=== PATIENT | male | born 1970 | race Hispanic/Latino ===

== ENCOUNTER 2021-07-26 08:58 | Emergency (ER) | payer BC ==
[2021-07-26 09:40] LABS: Absolute Lymphocytes (CBC) 2.2 K/uL (0.7-4.9); Basophils % 0.8 % (0-1.3); Hematocrit 45.3 % (39.6-49.0); MPV 7.9 fL (7.6-11.3); RBC Red Blood Cell Count 5.14 M/uL (4.33-5.43)
[2021-07-26 10:14] LABS: Albumin 3.8 g/dL (3.4-5.0); Bilirubin Direct 0.1 mg/dL (0-0.2); Bilirubin Total 0.3 mg/dL (0.2-1.0); Potassium 3.8 mmol/L (3.5-5.1); Protein, Total 7.4 g/dL (6.4-8.2)
--- NOTE | 2021-07-26 14:42 | ER ---
Nurse's Notes [facility] Name: Myke Olivarez Sr Age: 50 yrs Sex: Male : 1970 Arrival Date: 07/26/2021 Time: 09:02 Bed 8 Private MD: Chucho Torres B Diagnosis: Calculus of ureter-right 7 MM Presentation: 07/26 09:10 Chief complaint: Patient states: he has right sided abdominal pain that radiates to the ap3 back. Patient states the pain is 10/10 on a scale of 0-10. patient states he has never had this pain before. Coronavirus screen: At this time, the client does not indicate any symptoms associated with coronavirus-19. Ebola Screen: No symptoms or risks identified at this time. Initial Sepsis Screen: Does the patient meet any 2 criteria? RR > 20 per min. No. Patient's initial sepsis screen is negative. Does the patient have a suspected source of infection? No. Patient's initial sepsis screen is negative. Risk Assessment: Do you want to hurt yourself or someone else? Patient reports no desire to harm self or others. Onset of symptoms was July 26, 2021. 09:10 Method Of Arrival: Ambulatory ap3 09:10 Acuity: SANTINO 3 ap3 Triage Assessment: 09:14 General: Appears uncomfortable, Behavior is anxious, restless. Pain: Complains of pain ap3 in right upper quadrant Pain radiates to low back area Pain currently is 10 out of 10 on a pain scale. Pain began suddenly, Is continuous, Alleviated by repositioning, Noted to be restless. Neuro: Level of Consciousness is awake, alert, obeys commands, Oriented to person, place, time, situation, Appropriate for age Moves all extremities. Gait is steady, Speech is normal. Cardiovascular: Respiratory: Airway is patent Respiratory effort is even, unlabored, Respiratory pattern is regular, symmetrical. : Reports pain flank(s), in lower back. Musculoskeletal: Range of motion: intact in all extremities. Historical: - Allergies: 09:13 No Known Allergies; ap3 - Home Meds: 09:13 losartan oral [Active]; ap3 - PMHx: 09:13 Hypertensive disorder; Diabetes mellitus; ap3 - Immunization history:: Client reports receiving the Ricky \T\ Ricky single-dose vaccine. Date received January 2021. - Social history:: Smoking status: Patient denies any tobacco usage or history of. - Family history:: not pertinent. Screenin:15 Abuse screen: Denies threats or abuse. Nutritional screening: No deficits noted. ap3 Tuberculosis screening: No symptoms or risk factors identified. Fall Risk None identified. Assessment: 09:16 Reassessment: patient provided with urinal and education on proper urine collection. ap3 Patient verbalized understanding. Vital Signs: 09:10 BP 150 / 97; Pulse 64; Resp 21; Temp 97.7(O); Pulse Ox 97% on R/A; Weight 131.54 kg; ap3 Height 5 ft. 7 in. (170.18 cm); Pain 10/10; 09:30 BP 150 / 97; Pulse 87; Resp 18; Pulse Ox 100% on R/A; kj1 10:53 BP 123 / 78; Pulse 67; Pulse Ox 100% on R/A; Pain 0/10; ap3 11:47 BP 126 / 79; Pulse 59; Pulse Ox 97% on R/A; ap3 12:59 BP 125 / 83; Pulse 57; Pulse Ox 99% on R/A; ap3 13:42 BP 129 / 88; Pulse 72; Pulse Ox 96% on R/A; ap3 09:10 Body Mass Index 45.42 (131.54 kg, 170.18 cm) ap3 ED Course: 09:02 Patient arrived in ED. mr 09:02 Chucho Torres MD is Private Physician. mr 09:04 Judith Nieto, SASHA is Primary Nurse. ap3 09:06 Lilliam Hwang MD is Attending Physician. ma2 09:13 Triage completed. ap3 09:15 Arm band placed on right wrist. ap3 09:16 Patient has correct armband on for positive identification. Pulse ox on. NIBP on. Door ap3 closed. Noise minimized. 09:16 Inserted saline lock: 22 gauge in right antecubital area, using aseptic technique. ll1 Blood collected. 09:[address] via wheelchair. ap3 09:[address] In Process Unspecified. EDMS 14:41 Norman Amaral MD is Referral Physician. ma2 14:57 No provider procedures requiring assistance completed. IV discontinued, intact, ap3 bleeding controlled, No redness/swelling at site. Pressure dressing applied. Administered Medications: 09:38 Drug: Zofran (Ondansetron) 4 mg Route: IVP; Site: right antecubital; ap3 10:53 Follow up: Response: No adverse reaction ap3 09:38 Drug: NS 0.9% 1000 ml Route: IV; Rate: 1 bolus; Site: right antecubital; ap3 14:58 Follow up: IV Status: Completed infusion; IV Intake: 1000ml ap3 09:39 Drug: morphine 4 mg {Note: RASS 0, Pt states pain is 10/10.} Route: IVP; Site: right ap3 antecubital; 10:53 Follow up: Response: No adverse reaction ap3 12:11 Drug: Flomax (tamsulosin) 0.4 mg Route: PO; ap3 14:58 Follow up: Response: No adverse reaction ap3 Intake: 14:58 IV: 1000ml; Total: 1000ml. ap3 Outcome: 14:41 Discharge ordered by . ma2 14:58 Discharged to home ambulatory. ap3 14:58 Condition: good 14:58 Discharge instructions given to patient, Instructed on discharge instructions, follow up and referral plans. medication usage, Demonstrated understanding of instructions, follow-up care, medications, Prescriptions given X 3. 14:58 Patient left the ED. ap3 Signatures: Dispatcher [employer] SAROJ MendozaSarah Mohammad, MD MD ma2 Judith Nieto RN RN ap3 Alisa Butler Lynsay, RN RN ll1
--- NOTE | 2021-07-26 14:42 | EDPHYS ---
Physician Documentation [facility] Name: Myke Olivarez Sr Age: 50 yrs Sex: Male : 1970 Arrival Date: 07/26/2021 Time: 09:02 Bed 8 Private MD: Chucho Torres B ED Physician Lilliam Hwang HPI: 07/26 11:32 This 50 yrs old Male presents to ER via Ambulatory with complaints of Flank ma2 Pain, Back Pain. 11:32 The patient complains of pain in the left mid back and right mid back. Onset: The ma2 symptoms/episode began/occurred suddenly, 1 day(s) ago. Associated signs and symptoms: Pertinent negatives: dysuria, headache, hematuria, nausea. Severity of pain: At its worst the pain was moderate in the emergency department the pain is unchanged. The patient has not experienced similar symptoms in the past. Historical: - Allergies: 09:13 No Known Allergies; ap3 - Home Meds: 09:13 losartan oral [Active]; ap3 - PMHx: 09:13 Hypertensive disorder; Diabetes mellitus; ap3 - Immunization history:: Client reports receiving the Ricky \T\ Ricky single-dose vaccine. Date received January 2021. - Social history:: Smoking status: Patient denies any tobacco usage or history of. - Family history:: not pertinent. ROS: 11:32 Constitutional: Negative for fever, chills, and weight loss. ma2 11:32 All other systems are negative. Exam: 11:32 Constitutional: This is a well developed, well nourished patient who is awake, alert, ma2 and in no acute distress. ENT: Nares patent. No nasal discharge, no septal abnormalities noted. Tympanic membranes are normal and external auditory canals are clear. Oropharynx with no redness, swelling, or masses, exudates, or evidence of obstruction, uvula midline. Mucous membranes moist. Neck: Trachea midline, no thyromegaly or masses palpated, and no cervical lymphadenopathy. Supple, full range of motion without nuchal rigidity, or vertebral point tenderness. No Meningismus. Chest/axilla: Normal chest wall appearance and motion. Nontender with no deformity. No lesions are appreciated. Cardiovascular: Regular rate and rhythm with a normal S1 and S2. No gallops, murmurs, or rubs. Normal PMI, no JVD. No pulse deficits. Respiratory: Lungs have equal breath sounds bilaterally, clear to auscultation and percussion. No rales, rhonchi or wheezes noted. No increased work of breathing, no retractions or nasal flaring. Abdomen/GI: Soft, non-tender, with normal bowel sounds. No distension or tympany. No guarding or rebound. No evidence of tenderness throughout. Skin: Warm, dry with normal turgor. Normal color with no rashes, no lesions, and no evidence of cellulitis. MS/ Extremity: Pulses equal, no cyanosis. Neurovascular intact. Full, normal range of motion. Neuro: Awake and alert, GCS 15, oriented to person, place, time, and situation. Cranial nerves II-XII grossly intact. Motor strength 5/5 in all extremities. Sensory grossly intact. Cerebellar exam normal. Normal gait. Vital Signs: 09:10 BP 150 / 97; Pulse 64; Resp 21; Temp 97.7(O); Pulse Ox 97% on R/A; Weight 131.54 kg; ap3 Height 5 ft. 7 in. (170.18 cm); Pain 10/10; 09:30 BP 150 / 97; Pulse 87; Resp 18; Pulse Ox 100% on R/A; kj1 10:53 BP 123 / 78; Pulse 67; Pulse Ox 100% on R/A; Pain 0/10; ap3 11:47 BP 126 / 79; Pulse 59; Pulse Ox 97% on R/A; ap3 12:59 BP 125 / 83; Pulse 57; Pulse Ox 99% on R/A; ap3 13:42 BP 129 / 88; Pulse 72; Pulse Ox 96% on R/A; ap3 09:10 Body Mass Index 45.42 (131.54 kg, 170.18 cm) ap3 MDM: 09:06 Patient medically screened. ma2 11:32 Differential diagnosis: nephrolithiasis, pyelonephritis, UTI, pancreatitis. ma2 14:40 Data reviewed: vital signs, nurses notes, EMS record. Counseling: I had a detailed ma2 discussion with the patient and/or guardian regarding: the historical points, exam findings, and any diagnostic results supporting the discharge/admit diagnosis, the presence of at least one elevated blood pressure reading (>120/80) during this emergency department visit, the need for outpatient follow up. Response to treatment: the patient's symptoms have resolved after treatment. ED course: verbal report taken from dr. craven patient has right sided ureter stone 7mm upg w mild hydro . 07/26 09:29 Order name: Basic Metabolic Panel; Complete Time: 10:47 ma2 07/26 09:29 Order name: CBC with Diff; Complete Time: 10:01 ma2 07/26 09:29 Order name: Stone Protocol CT ma2 07/26 09:29 Order name: Hepatic Function; Complete Time: 10:47 ma2 07/26 09:29 Order name: Lipase; Complete Time: 10:47 ma2 07/26 09:29 Order name: IV Saline Lock; Complete Time: 09:30 ma2 07/26 09:29 Order name: Labs collected and sent; Complete Time: 09:39 ma2 07/26 09:29 Order name: Urine Dipstick-Ancillary (obtain specimen); Complete Time: 11:23 ma2 Administered Medications: 09:38 Drug: Zofran (Ondansetron) 4 mg Route: IVP; Site: right antecubital; ap3 10:53 Follow up: Response: No adverse reaction ap3 09:38 Drug: NS 0.9% 1000 ml Route: IV; Rate: 1 bolus; Site: right antecubital; ap3 14:58 Follow up: IV Status: Completed infusion; IV Intake: 1000ml ap3 09:39 Drug: morphine 4 mg {Note: RASS 0, Pt states pain is 10/10.} Route: IVP; Site: right ap3 antecubital; 10:53 Follow up: Response: No adverse reaction ap3 12:11 Drug: Flomax (tamsulosin) 0.4 mg Route: PO; ap3 14:58 Follow up: Response: No adverse reaction ap3 Disposition Summary: 07/26/21 14:41 Discharge Ordered Location: Home ma2 Condition: Stable ma2 Diagnosis - Calculus of ureter - right 7 MM ma2 Followup: ma2 - With: Norman Amaral MD - When: Tomorrow - Reason: Continuance of care Discharge Instructions: - Discharge Summary Sheet ma2 - Kidney Stones ma2 - Kidney Stones, [id number] ma2 - Lithotripsy, Care After ma2 Forms: - Medication Reconciliation Form ma2 - Thank You Letter ma2 - Antibiotic Education ma2 - Prescription Opioid Use ma2 Prescriptions: - Flomax 0.4 mg Oral capsule - take 1 capsule by ORAL route once daily 1/2 hour following the same meal each ma2 day; 30 capsule; Refills: 0, Product Selection Permitted - Zofran 4 mg Oral Tablet - take 1 tablet by ORAL route every 12 hours As needed; 20 tablet; Refills: 0, ma2 Product Selection Permitted - Diclofenac Sodium 75 mg Oral Tablet Sustained Release - take 1 tablet by ORAL route 2 times per day; 30 tablet; Refills: 0, Product ma2 Selection Permitted Signatures: Dispatcher [employer] EDLilliam Thompson MD MD ma2 Judith Nieto RN RN ap3
--- NOTE | 2021-07-26 14:47 | RAD REPORT ---
EXAM DESCRIPTION: CT - Stone Protocol - 07/26/2021 12:55 pm CLINICAL HISTORY: flank pain bilat COMPARISON: No comparisons TECHNIQUE: Axial 3 mm thick images were obtained without oral or IV contrast. The ghisb-nu-ruei span s the entirety of the system including uppermost abdomen and lung bases. All CT scans are performed using dose optimization technique as appropriate and may include automated exposure control or mA/KV adjustment according to patient size. FINDINGS: Mild hydronephrosis of the right side pelvis and calices noted secondary to a 7 millimeter right UPJ stone. No other obstructing calculi. Distal right ureter is normal diameter. Punctate 2 mm size calculi seen in the upper pole of each kidney. Anterior mid left kidney shows a 3 centimeter ro unded low-density mass almost certainly an incidental cyst. No suspicious renal masses. Isodense mass es and pyelonephritis are not excluded on a stone protocol CT scan. No significant adrenal finding. C ontracted urinary bladder shows no suspicious finding. No bladder calculi seen. Prostate gland and se luis manuel vesicles within range of normal. Imaged portions of the liver, spleen and pancreas show no suspicious findings on non-contrast imaging . No gallbladder or biliary tree abnormality identified. No suspicious bowel findings. No suspicion for appendicitis. No hernia, mass or bulky lymphadenopathy noted. A few small nonspecific lymph nodes are seen. No free air, free fluid or inflammatory stranding. No significant bony abnormality. Due to technical malfunction the final report could not be dictated at the time of the study. Finding s were telephoned to the emergency department. IMPRESSION: Mild hydronephrosis secondary to a 7 mm right UPJ calculus. No other acute findings. Isodense masses and pyelonephritis are not excluded on stone protocol technique.
[2021-07-26 15:04] VITALS: TEMP 97.7
[2021-07-26 15:11] VITALS: BP 129/88; O2SAT 96
[2021-07-29 09:48] LABS: Urine Blood 3+ (Negative); Urine Glucose Negative (Negative); Urine Protein Negative (Negative); Urine Specific Gravity 1.015 (1.005-1.030); Urine pH 5.5 (5.0-7.0)
== END 2021-07-26 14:58 | disposition home or self-care (01) ==
LOC: ER 08:58
DX: N20.1 Calculus of ureter (principal); I10 Essential (primary) hypertension; E11.9 Type 2 diabetes mellitus without complications
CPT/HCPCS: 36415; 74176; 76377; 80048; 80076; 81003; 83690; 85025; 96361; 96374; 96375; 99284

== ENCOUNTER 2022-03-13 08:18 | Emergency (ER) | payer BC ==
--- OUTSIDE RECORDS SUMMARY | 2022-03-13 08:32 | XMS REPORT | Continuity of Care Document ---
:1970 Author Organization [facility] t Address [address] [place] [address] Dr. Tillman [address] [place] [id number] Care Team Providers Name Role Phone JAY LEE Attending Clinician Unavailable Problems This patient has no known problems. Allergies, Adverse Reactions, Alerts Allergy Allergy Status Severity Reaction(s) Onset Inactive Treating Comm ents Source Name Type Date Date Clinician NO KNOWN Drug Active [facility] ALLERGIE Class [facility] Medications This patient has no known medications. Procedures This patient has no known procedures. Encounters Start End Encounter Admission Attending Care Care Encounter Source Date/Time Date/Time Type Type Clinicians Facility Department ID 2020-07-05 2020-07-05 Outpatient R JESUS ARJYOTI [facility] [id number] [employer] 09:50:00 09:50:00 [facility] Results This patient has no known results.
[2022-03-13] MEDS ORDERED: MORPHINE 4 MG/ML SYR ONE (08:46)
[2022-03-13] MEDS ORDERED: NA CHLORIDE 0.9% 1,000 ML ONE (08:46)
[2022-03-13] MEDS ORDERED: ONDANSETRON 4 MG/2 ML VIAL ONE ×2 (08:46→09:52)
[2022-03-13 09:00] LABS: Absolute Lymphocytes (CBC) 1.9 K/uL (0.7-4.9); Hematocrit 48.8 % (39.6-49.0); Lymphocytes % 21.2 % (15.3-44.8); MPV 7.5 fL (7.6-11.3); RBC Red Blood Cell Count 5.55 M/uL (4.33-5.43)
--- NOTE | 2022-03-13 09:02 | RAD REPORT ---
EXAM DESCRIPTION: CT - Stone Protocol - 03/13/2022 8:55 am CLINICAL HISTORY: Flank pain. Flank pain, kidney stone suspected COMPARISON: Stone Protocol dated 07/26/2021 TECHNIQUE: Axial images were obtained without oral or IV contrast. Lack of contrast limits solid org an and vascular assessment. The [id number] spans the entirety of the system partially obscuring uppermost abdomen and lung bases. Coronal reformatted images were obtained and reviewed. All CT scans are performed using dose optimization technique as appropriate and may include automated exposure control or mA/KV adjustment according to patient size. FINDINGS: The lower lung prescott are clear. Imaged portions of the liver and spleen show no suspicious findings on non-contrast imaging. The panc reas and adrenal glands are normal. No pathologic lymphadenopathy in the abdomen or pelvis. 6 mm stone is present proximal right ureter mild right hydronephrosis. Additional punctate bilateral nephrolithiasis seen. 3.3 cm cyst is seen the anterior aspect left renal cortex. No bowel obstruction, free air, free fluid or abscess. Normal appendix noted. No significant bony abnormality. IMPRESSION: 6 mm stone proximal right ureter with mild right hydronephrosis. Additional punctate bilateral nephrolithiasis.
[2022-03-13 09:24] LABS: Bilirubin Total 0.5 mg/dL (0.2-1.0); Potassium 3.5 mmol/L (3.5-5.1); Protein, Total 8.1 g/dL (6.4-8.2)
[2022-03-13] MEDS ORDERED: KETOROLAC 30 MG/ML INJ ONE (09:24)
[2022-03-13] MEDS ORDERED: CEFTRIAXONE 1000 MG/VIAL ONE (09:24)
[2022-03-13] MEDS ORDERED: NA CHLORIDE 0.9% 100 ML ONE (09:24)
[2022-03-13] MEDS ORDERED: MAGNESIUM SULFATE 1 gm IVPB 1 GM/100 ML BAG IV ONE (09:24)
[2022-03-13] MEDS ORDERED: TAMSULOSIN 0.4 MG SR CAP ONE (09:24)
[2022-03-13] MEDS ORDERED: HYDROMORPHONE HCL 1 MG/ML INJ ONE ×2 (09:52→11:52)
--- NOTE | 2022-03-13 11:56 | ER ---
Nurse's Notes [facility] Name: Myke Olivarez Age: 51 yrs Sex: Male : 1970 Arrival Date: 03/13/2022 Time: 08:19 Bed 2 Private MD: Chucho Torres B Diagnosis: Calculus of ureter-right Presentation: 03/13 08:24 Chief complaint: Patient states: right flank pain since 7 am, hx of kidney stones, also iw vomiting. Coronavirus screen: At this time, the client does not indicate any symptoms associated with coronavirus-19. Ebola Screen: Patient negative for fever greater than or equal to 101.5 degrees Fahrenheit, and additional compatible Ebola Virus Disease symptoms Patient denies exposure to infectious person. Patient denies travel to an Ebola-affected area in the 21 days before illness onset. No symptoms or risks identified at this time. Initial Sepsis Screen: Does the patient meet any 2 criteria? No. Patient's initial sepsis screen is negative. Does the patient have a suspected source of infection? No. Patient's initial sepsis screen is negative. Risk Assessment: Do you want to hurt yourself or someone else? Patient reports no desire to harm self or others. Onset of symptoms was March 13, 2022. 08:24 Method Of Arrival: Ambulatory iw 08:24 Acuity: SANTINO 3 iw Historical: - Allergies: 08:24 No Known Allergies; iw - PMHx: 08:24 Hypertensive disorder; diabetes mellitus; iw - PSHx: 08:24 None; iw Screenin:34 Abuse screen: Denies threats or abuse. Denies injuries from another. Nutritional iw screening: No deficits noted. Tuberculosis screening: No symptoms or risk factors identified. Fall Risk IV access (20 points). Assessment: 08:30 General: Appears uncomfortable, Behavior is restless. Pain: Complains of pain in right aa5 flank Pain currently is 10 out of 10 on a pain scale. Quality of pain is described as sharp, shooting, Is continuous. Neuro: Level of Consciousness is awake, alert, obeys commands, Oriented to person, place, time, situation. Cardiovascular: Heart tones S1 S2 present Rhythm is regular. Respiratory: Airway is patent Respiratory effort is even, unlabored, Respiratory pattern is regular, symmetrical. GI: Abdomen is obese, Bowel sounds present X 4 quads. Abd is soft and non tender X 4 quads. Reports nausea, vomiting. : No signs and/or symptoms were reported regarding the genitourinary system. EENT: No signs and/or symptoms were reported regarding the EENT system. Derm: Skin is pink, warm \T\ dry. Musculoskeletal: Range of motion: intact in all extremities. 09:42 Reassessment: Patient is alert, oriented x 3, equal unlabored respirations, skin aa5 warm/dry/pink. Patient states symptoms have not improved. PA notified (see MAR for orders). 09:42 General: Appears uncomfortable, Behavior is restless. aa5 09:42 Pain: Pain currently is 8 out of 10 on a pain scale. aa5 11:04 Reassessment: Patient is alert, oriented x 3, equal unlabored respirations, skin aa5 warm/dry/pink. Patient states feeling better. Patient states symptoms have improved. Pt declined water for PO challenge, pt given Diet Sprite for PO challenge. . General: Appears comfortable. 11:53 Reassessment: Patient is alert, oriented x 3, equal unlabored respirations, skin aa5 warm/dry/pink. General: Appears comfortable. 11:53 Pain: Pain currently is 6 out of 10 on a pain scale. aa5 11:53 Reassessment: No vomiting noted or reported after PO challenge. . aa5 12:30 Reassessment: Patient is alert, oriented x 3, equal unlabored respirations, skin aa5 warm/dry/pink. Patient states feeling better. Awaiting urine micro results before d/c home. . Vital Signs: 08:25 BP 145 / 95; Pulse 70; Resp 18; Temp 97.0; Pulse Ox 99% on R/A; Weight 122.47 kg; iw Height 5 ft. 7 in. (170.18 cm); Pain 10/10; 09:53 BP 119 / 61; Pulse 61; Resp 20 S; Pulse Ox 99% on R/A; aa5 11:50 BP 120 / 79; Pulse 59; Resp 16 S; Pulse Ox 99% on R/A; aa5 08:25 Body Mass Index 42.29 (122.47 kg, 170.18 cm) iw ED Course: 08:19 Patient arrived in ED. as 08:19 Chucho Torres MD is Private Physician. as 08:20 Marco Antonio Radford PA is PHCP. cp 08:20 Maninder Hinojosa MD is Attending Physician. cp 08:24 Triage completed. iw 08:25 Arm band placed on. iw 08:30 Patient has correct armband on for positive identification. Bed in low position. Call aa5 light in reach. Side rails up X 1. 08:34 Initial lab(s) drawn, by me. Inserted saline lock: 20 gauge in right antecubital area, iw using aseptic technique. Blood collected. 08:57 CT Stone Protocol In Process Unspecified. EDMS 09:12 Alicja Lazo, SASHA is Primary Nurse. aa5 11:55 Norman Amaral MD is Referral Physician. cp 13:47 No provider procedures requiring assistance completed. IV discontinued, intact, iw bleeding controlled, No redness/swelling at site. Pressure dressing applied. Administered Medications: 08:48 Drug: Zofran (Ondansetron) 4 mg Route: IVP; Site: right antecubital; iw 08:55 Follow up: Response: No adverse reaction aa5 08:48 Drug: morphine 4 mg Route: IVP; Infused Over: 4 mins; Site: right antecubital; iw 09:12 Follow up: Response: No adverse reaction; Pain is unchanged, physician notified aa5 08:48 Drug: NS 0.9% 1000 ml Route: IV; Rate: 500 ml/hr; Site: right antecubital; iw 09:40 Follow up: IV Status: Completed infusion; IV Intake: 500ml aa5 09:12 Drug: Flomax (tamsulosin) 0.4 mg Route: PO; aa5 10:11 Follow up: Response: No adverse reaction aa5 09:12 Drug: Rocephin - (cefTRIAXone) 1 grams Route: IVPB; Infused Over: 30 mins; Site: right aa5 antecubital; 09:42 Follow up: Response: No adverse reaction; IV Status: Completed infusion aa5 09:12 Drug: Ketorolac 15 mg Route: IVP; Site: right antecubital; aa5 09:42 Follow up: Response: No adverse reaction; Pain is unchanged, physician notified aa5 09:42 Drug: Magnesium Sulfate 1 grams Route: IVPB; Infused Over: 1 hrs; Site: right aa5 antecubital; 10:42 Follow up: IV Status: Completed infusion aa5 09:50 Drug: Zofran (Ondansetron) 4 mg Route: IVP; Site: right antecubital; aa5 10:13 Follow up: Response: No adverse reaction aa5 09:52 Drug: Dilaudid (HYDROmorphone) 1 mg Route: IVP; Site: right antecubital; aa5 10:13 Follow up: Response: No adverse reaction aa5 11:53 Drug: Dilaudid (HYDROmorphone) 1 mg Route: IVP; Site: right antecubital; aa5 12:30 Follow up: Response: No adverse reaction; Pain is decreased aa5 Intake: 09:40 IV: 500ml; Total: 500ml. aa5 Outcome: 11:56 Discharge ordered by MD. cp 13:47 Discharged to home ambulatory, with family. iw 13:47 Condition: good 13:47 Discharge instructions given to patient, Instructed on discharge instructions, follow up and referral plans. medication usage, Demonstrated understanding of instructions, follow-up care, medications, Prescriptions given X 4. 13:48 Patient left the ED. iw Signatures: Dispatcher [employer] Rbeekah Sarmiento Irene, RN SASHA iw Alicja Laoz RN RN aa5 Marco Antonio Radford PA PA cp
--- NOTE | 2022-03-13 11:56 | EDPHYS ---
Physician Documentation [facility] – [place], [place] Name: Myke Olivarez Age: 51 yrs Sex: Male : 1970 Arrival Date: 03/13/2022 Time: 08:19 Bed 2 Private MD: Chucho Torres B ED Physician Maninder Hinojosa HPI: 03/13 08:45 This 51 yrs old Male presents to ER via Ambulatory with complaints of Possible cp Kidney Stone. Historical: - Allergies: 08:24 No Known Allergies; iw - PMHx: 08:24 Hypertensive disorder; diabetes mellitus; iw - PSHx: 08:24 None; iw ROS: 08:50 Constitutional: Negative for body aches, chills, fever, poor PO intake. cp 08:50 Eyes: Negative for injury, pain, redness, and discharge. cp 08:50 Cardiovascular: Negative for chest pain, palpitations. 08:50 Respiratory: Negative for cough, shortness of breath, wheezing. 08:50 Abdomen/GI: Positive for nausea, Negative for diarrhea, constipation, active vomiting. 08:50 Back: Positive for flank pain, on the right, Negative for injury or acute deformity, decreased range of motion. 08:50 : Negative for urinary symptoms, testicular pain 08:50 Neuro: Negative for altered mental status, headache, numbness, weakness. 08:50 All other systems are negative. Exam: 08:55 Constitutional: The patient appears in no acute distress, alert, awake, cp non-diaphoretic, non-toxic, well developed, well nourished, uncomfortable. 08:55 Head/Face: Normocephalic, atraumatic. cp 08:55 Eyes: Periorbital structures: appear normal, Conjunctiva: normal, no exudate, no injection, Sclera: no appreciated abnormality, Lids and lashes: appear normal, bilaterally. 08:55 ENT: External ear(s): Nose: is normal, Mouth: Lips: moist, Oral mucosa: pink and intact, moist, Posterior pharynx: Airway: no evidence of obstruction, patent. 08:55 Chest/axilla: Inspection: normal. 08:55 Cardiovascular: Rate: normal, Rhythm: regular. 08:55 Respiratory: the patient does not display signs of respiratory distress, Respirations: normal, no use of accessory muscles, no retractions, labored breathing, is not present, Breath sounds: are clear throughout, no decreased breath sounds, no stridor, no wheezing. 08:55 Abdomen/GI: Inspection: abdomen appears normal, Bowel sounds: active, all quadrants, Palpation: soft, in all quadrants, moderate abdominal tenderness, in the right flank, rebound tenderness, is not appreciated, involuntary guarding, is not appreciated. 08:55 Skin: cellulitis, is not appreciated, no rash present. 08:55 Neuro: Orientation: to person, place \T\ time. Mentation: is normal, Motor: moves all fours, strength is normal, Sensation: is normal, Gait: is steady, at a normal pace, without difficulty. Vital Signs: 08:25 BP 145 / 95; Pulse 70; Resp 18; Temp 97.0; Pulse Ox 99% on R/A; Weight 122.47 kg; iw Height 5 ft. 7 in. (170.18 cm); Pain 10/10; 09:53 BP 119 / 61; Pulse 61; Resp 20 S; Pulse Ox 99% on R/A; aa5 11:50 BP 120 / 79; Pulse 59; Resp 16 S; Pulse Ox 99% on R/A; aa5 08:25 Body Mass Index 42.29 (122.47 kg, 170.18 cm) iw MDM: 08:34 Patient medically screened. cp 11:55 Data reviewed: vital signs, nurses notes, lab test result(s), radiologic studies, CT cp scan. 11:55 Counseling: I had a detailed discussion with the patient and/or guardian regarding: the cp historical points, exam findings, and any diagnostic results supporting the discharge/admit diagnosis, lab results, radiology results, the need for outpatient follow up, a urologist, if pain continues next 2-3 days, to return to the emergency department if symptoms worsen or persist or if there are any questions or concerns that arise at home. 03/13 08:37 Order name: CBC with Diff; Complete Time: 09:08 cp 03/13 09:08 Interpretation: Normal except: RBC 5.55; MPV 7.5. cp 03/13 08:37 Order name: CMP; Complete Time: 11:56 cp 03/13 11:56 Interpretation: Normal except: GLUC 136; GFR 83; AST 14; GLOB 4.1. cp 03/13 08:37 Order name: Lipase; Complete Time: 11:56 cp 03/13 11:59 Interpretation: Reviewed. cp 03/13 08:37 Order name: Urine Microscopic Only; Complete Time: 13:28 cp 03/13 13:28 Interpretation: Normal except: URBC 5-10; UBACT 20-50. cp 03/13 12:31 Order name: Urine Dipstick-Ancillary; Complete Time: 13:28 EDMS 03/13 13:09 Order name: Urine Culture EDMS 03/13 08:38 Order name: CT Stone Protocol; Complete Time: 09:08 cp 03/13 09:08 Interpretation: Report reviewed. cp 03/13 08:37 Order name: IV Saline Lock; Complete Time: 08:48 cp 03/13 08:37 Order name: Labs collected and sent; Complete Time: 08:48 cp 03/13 08:38 Order name: Urine Dipstick-Ancillary (obtain specimen); Complete Time: 12:33 cp 03/13 10:54 Order name: PO challenge; Complete Time: 11:02 cp Administered Medications: 08:48 Drug: Zofran (Ondansetron) 4 mg Route: IVP; Site: right antecubital; iw 08:55 Follow up: Response: No adverse reaction aa5 08:48 Drug: morphine 4 mg Route: IVP; Infused Over: 4 mins; Site: right antecubital; iw 09:12 Follow up: Response: No adverse reaction; Pain is unchanged, physician notified aa5 08:48 Drug: NS 0.9% 1000 ml Route: IV; Rate: 500 ml/hr; Site: right antecubital; iw 09:40 Follow up: IV Status: Completed infusion; IV Intake: 500ml aa5 09:12 Drug: Flomax (tamsulosin) 0.4 mg Route: PO; aa5 10:11 Follow up: Response: No adverse reaction aa5 09:12 Drug: Rocephin - (cefTRIAXone) 1 grams Route: IVPB; Infused Over: 30 mins; Site: right aa5 antecubital; 09:42 Follow up: Response: No adverse reaction; IV Status: Completed infusion aa5 09:12 Drug: Ketorolac 15 mg Route: IVP; Site: right antecubital; aa5 09:42 Follow up: Response: No adverse reaction; Pain is unchanged, physician notified aa5 09:42 Drug: Magnesium Sulfate 1 grams Route: IVPB; Infused Over: 1 hrs; Site: right aa5 antecubital; 10:42 Follow up: IV Status: Completed infusion aa5 09:50 Drug: Zofran (Ondansetron) 4 mg Route: IVP; Site: right antecubital; aa5 10:13 Follow up: Response: No adverse reaction aa5 09:52 Drug: Dilaudid (HYDROmorphone) 1 mg Route: IVP; Site: right antecubital; aa5 10:13 Follow up: Response: No adverse reaction aa5 11:53 Drug: Dilaudid (HYDROmorphone) 1 mg Route: IVP; Site: right antecubital; aa5 12:30 Follow up: Response: No adverse reaction; Pain is decreased aa5 Disposition: 15:03 Co-signature as Attending Physician, Maninder Hinojosa MD. rn Disposition Summary: 03/13/22 11:56 Discharge Ordered Location: Home cp Problem: new cp Symptoms: have improved cp Condition: Stable cp Diagnosis - Calculus of ureter - right cp Followup: cp - With: Norman Amaral MD - When: 2 - 3 days - Reason: pain continues Discharge Instructions: - Discharge Summary Sheet cp - Kidney Stones cp - Renal Colic cp Forms: - Medication Reconciliation Form cp - Thank You Letter cp - Antibiotic Education cp - Prescription Opioid Use cp Prescriptions: - Flomax 0.4 mg Oral capsule - take 1 capsule by ORAL route once daily As needed 1/2 hour following the same cp meal each day; 7 capsule; Refills: 0, Product Selection Permitted - Zofran 4 mg Oral Tablet - take 1 tablet by ORAL route every 12 hours As needed; 20 tablet; Refills: 0, cp Product Selection Permitted - Cipro 500 mg Oral Tablet - take 1 tablet by ORAL route every 12 hours for 7 days; 14 tablet; Refills: 0, cp Product Selection Permitted - Tylenol-Codeine #3 300 mg-30 mg Oral - take 2 tablet by ORAL route every 6-8 hours As needed; 20 tablet; Refills: 0, cp Product Selection Permitted Signatures: Dispatcher [employer] Nano Parmar RN RN Maninder Hinojosa MD MD rn Calderon, Audri, RN RN aa5 Page, Marco Antonio, PA PA cp
[2022-03-13 12:30] LABS: Urine Blood 2+ (Negative); Urine Glucose 2+ (Negative); Urine Protein Trace (Negative); Urine Specific Gravity 1.025 (1.005-1.030); Urine pH 5.5 (5.0-7.0)
[2022-03-13 13:05] LABS: Urine Bacteria 20-50 /HPF (NONE SEEN)
[2022-03-13 13:06] LABS: Urine Mucus 1+ /HPF (NONE SEEN)
[2022-03-13 13:53] VITALS: TEMP 97; O2SAT 99
[2022-03-13 13:57] VITALS: BP 120/79
== END 2022-03-13 13:48 | disposition home or self-care (01) ==
LOC: ER 08:18
DX: N20.1 Calculus of ureter (principal); R11.0 Nausea; E11.9 Type 2 diabetes mellitus without complications; I10 Essential (primary) hypertension
CPT/HCPCS: 96365; 96367; 87088; 85025; 87086; 36415; 83690; 80053; 76377; 74176; 96375; 99284; J3475; J1170 ×2; J7030; J2405 ×2; 81003; 81015

== ENCOUNTER 2022-05-02 08:42 | Observation (INO) | payer BC ==
[2022-04-27 08:42] LABS: Absolute Lymphocytes (CBC) 1.5 K/uL (0.7-4.9); Hematocrit 45.7 % (39.6-49.0); Lymphocytes % 21.3 % (15.3-44.8); MCV 86.8 fL (80-100); MPV 7.2 fL (7.6-11.3); RBC Red Blood Cell Count 5.26 M/uL (4.33-5.43)
[2022-04-27 08:47] LABS: Potassium 3.9 mmol/L (3.5-5.1)
--- NOTE | 2022-04-27 08:47 | EKG ---
Test Date: 2022-04-27 Test Time: 08:07:01 Rn Transport: [facility] MEASUREMENT RESULTS: Intervals: Rate: 69 GA: 212 QRSD: 106 QT: 392 QTc: 420 [place]: P: 52 GA: 212 QRS: 76 T: 63 INTERPRETIVE STATEMENTS: Sinus rhythm with 1st degree AV block Otherwise normal ECG Compared to ECG 06/17/2001 21:15:00 First degree AV block now present Right-axis deviation no longer present Electronically Signed On 04-27-22 08:46:46 CDT by Tayo Murray
[2022-04-27 09:54] LABS: Protime INR 0.91
[2022-05-02] MEDS ORDERED: CEFAZOLIN 2 GM IN 0.9% NACL 2 GM/100 ML BAG ONE (09:02)
[2022-05-02] MEDS ORDERED: NA CHLORIDE 0.9% 1,000 ML ONE ×2 (09:02→10:53)
[2022-05-02] MEDS ORDERED: MIDAZOLAM HCL 2 MG/2 ML INJ ONE (10:24)
[2022-05-02] MEDS ORDERED: LIDOCAINE 1% MPF 5 ML VIAL ONE (10:24)
[2022-05-02] MEDS ORDERED: propofoL 200 MG/20 ML VIAL IV ONE ×2 (10:24→11:14)
[2022-05-02] MEDS ORDERED: FENTANYL CITR 100 MCG/2 ML ONE (10:24)
[2022-05-02] MEDS ORDERED: ACETAMINOPHEN 500 MG TAB ONE (10:32)
[2022-05-02] MEDS ORDERED: dexAMETHasone 10 MG/ML VIAL ONE (11:25)
[2022-05-02] MEDS ORDERED: KETOROLAC 30 MG/ML INJ ONE (11:25)
[2022-05-02] MEDS ORDERED: Phenylephrine HCl 10 MG/ML 1 ML VIAL ONE (11:35)
[2022-05-02] MEDS ORDERED: NS 0.9% VIAL 10 ML ONE (11:35)
[2022-05-02] MEDS ORDERED: ONDANSETRON 4 MG/2 ML VIAL ONE (11:35)
--- NOTE | 2022-05-02 12:13 | RAD REPORT ---
EXAM DESCRIPTION: RAD - Urethrocystogrphy Retrograde - 05/02/2022 11:59 am CLINICAL HISTORY: RIGHT SIDE STENT PLACEMENT COMPARISON: No comparisons FINDINGS: Total fluoro time: 3 seconds
[2022-05-02] MEDS ORDERED: CODEINE 30MG/APAP 300MG TAB PO PRN ×2 (12:30→18:38)
[2022-05-02] MEDS ORDERED: PHENAZOPYRIDINE 100MG TAB PO ONE ×2 (12:30→15:26)
[2022-05-02] MEDS ORDERED: LIDOCAINE JELLY 2% 5 ML SYRINGE TOP ONE (15:36)
--- NOTE | 2022-05-02 17:07 | P.PN ---
Date of Service: 05/02/22 Postop note: Patient seen in recovery with persistent gross hematuria, tomato juice appearing. He was not uncomfortable in no distress. Bladder irrigation procedure note: I the catheter from the attached leg bag and utilizing a 60 cc piston syringe, I copiously irrigated his bladder with over 500 cc normal saline. Despite this, the urine remained significantly pink, but I did clarify some. As a result, I observed over the course of the next hour and a half, and the urine was again red and nontranslucent. As a result, I recommended catheter exchange/upsizing and possible CBI. Complex catheter exchange/upsizing and bladder irrigation procedure note: I prepped his genitalia and the [address] ira tipped catheter in place using Hibiclens. I then irrigated his bladder again with 180 cc of sterile water before retrograde filling his bladder with an additional 120 cc of sterile water. I then passed a [employer] guidewire via the catheter coiling it in his bladder. I then deflated the balloon of the [address] michael ira tip catheter and removed it leaving the wire in place. Over the wire, I then passed a 22 Finnish three-way Rodney catheter into his bladder with ease. I filled the catheter balloon with approximately 25 cc sterile water, and then I irrigated his bladder with an additional 500 cc sterile water. The urine did clarify significantly, and I was able to remove several formed clots. I then observed his urine over the course of the next several minutes to determine if CBI needed to be initiated. Because his urine remained fruit punch colored, I then recommended overnight observation and CBI. Bladder irrigation and CBI initiation procedure note: I again the catheter from the drainage bag and irrigated his bladder with approximately 250 cc sterile water. I then connected to lead cystoscopy tubing with normal saline and initiated CBI at slow drip. The efflux of fluid was Pyridium colored and completely translucent. He tolerated the procedures well and without complication. Recommendation: Admit for overnight observation CBI with normal saline to keep urine light pink to clear Bactrim antimicrobial therapy Anticipated discharge in the a.m.
[2022-05-02] MEDS ORDERED: NACL 0.9% IRRG SOLN 1000 ML IRR PRN (18:18)
[2022-05-02] MEDS ORDERED: SODIUM CHL 0.9% IRR SOLN 2000 ML IRR SCH (18:18)
[2022-05-02] MEDS ORDERED: ONDANSETRON 4 MG/2 ML VIAL IV PRN (18:18)
[2022-05-02] MEDS ORDERED: GLUCAGON 1 MG/VIAL IM PRN (18:18)
[2022-05-02 18:25] VITALS: O2SAT 97
--- OUTSIDE RECORDS SUMMARY | 2022-05-02 18:31 | XMS REPORT | Continuity of Care Document ---
:1970 Author Organization [facility] t Address [address] [place] [address] Care Team Providers Name Role Phone Piotr Torres Attending Clinician Unavailable JAY LEE Attending Clinician Unavailable Piotr Torres Admitting Clinician Unavailable Problems This patient has no known problems. Allergies, Adverse Reactions, Alerts Allergy Allergy Status Severity Reaction(s) Onset Inactive Treating Comm ents Source Name Type Date Date Clinician NO KNOWN Drug Active [facility] Medications This patient has no known medications. Procedures This patient has no known procedures. Encounters Start End Encounter Admission Attending Care Care Encounter Source Date/Time Date/Time Type Type Clinicians Facility Department ID 2022-04-12 Outpatient NASIR Torres [facility] [id number] Common 12:56:01 Piotr [id number] [facility] 2020-07-05 2020-07-05 Outpatient HALLE GONZALEZ [facility] [id number] 09:50:00 09:50:00 JAY [facility] Results This patient has no known results.
[2022-05-02] MEDS ORDERED: DEXTROSE 10%-WATER 500 ML IV BAG IV PRN (18:36)
[2022-05-02] MEDS ORDERED: NACL 0.9% IRR ONE (18:44)
[2022-05-02] MEDS ORDERED: IRR IRR ONE (18:44)
[2022-05-02] MEDS: Ringers Lactate 1,000 ML IV SCH (19:27)
[2022-05-02] MEDS ORDERED: OXYBUTYNIN ER 5 MG TAB PO ONE (20:00)
--- NOTE | 2022-05-02 21:50 | OP ---
Surgeon: KD BURNETT Preoperative Diagnoses: 1.Right ureterolithiasis. 2.Right hydronephrosis. Postoperative Diagnoses: 1.Right ureterolithiasis. 2.Right hydronephrosis. 3.Perineal urethral stricture disease. 4.Right ureterovesical junction stenosis/stricture. Principal Procedures: 1.Cystourethroscopy with dilation of urethral stricture over a wire using sequential dilators. 2.Complex urethral Rodney catheter placement. 3.Attempted ureteroscopy and right ureteral stent placement. Indication For Procedure: Mr. Olivarez is a 51-year-old gentleman with history of nephroureterolithiasi s on the left with a 6 mm right ureteral calculus. His flank pain had resolved, but he failed to pas s the stone. As a result, he was recommended for operative evaluation. A KUB did identify the presence of a stone inferior to the right transverse process of L4 consistent with the ureteral calculus. As a result, he was counseled on the recommendation for surgical evaluat ion. Procedure In Detail: The patient was consented in the preoperative holding area before being transfe rred to the operative suite where general anesthesia was induced. He was given Ancef 2 g IV antimicr obial prophylaxis and pneumo boots were provided for DVT prophylaxis. He was placed in the lithotomy position, padded and secured to the table appropriately and his genitalia was prepped using Hibiclen s and draped in standard fashion. The case was begun using a 22-German rigid cystoscope to traverse the pendulous urethra before encountering an area of significant urethral narrowing in the perineal u rethra. Attempts to bypass this and dilated using the cystoscope were thwarted due to development of a mucosal flap. As a result, I passed a Bentson guidewire via the cystoscope, and under direct visi on, passed it through the inferior opening where the flap had yet to cover the urethra entirely, and was able to pass this putatively into his bladder. Over the wire, I then began sequential dilation f rom 14-German to approximately 18- and 20-German, each time encountering some difficulty, likely due to an elevated bladder neck. As a result, I passed a 14-German dilator into his bladder and exchange d the Bentson guidewire with a superstiff guidewire and then attempted to again continue sequential d ilation from 18 to 20-German, but I continued to have some difficulty suggestive of the potential for a false passage. As a result, I ceased subsequent attempts at further urethral dilation and perform ed direct vision cystoscopy over the indwelling superstiff safety wire, and this time was able to shyann igate beyond the mucosal flap and via the striated sphincter into the prostatic urethra where a sligh t degree of false passage was indeed formed. The bladder neck was markedly elevated, but I was able to navigate and find my way beyond it and into his bladder appropriately. I then decompressed his bl adder of fluid and urine and some blood, and then surveyed the bladder posteriorly identifying the tr igone. I then attempted to cannulate the right ureteral orifice using a 5-German ureteral access cat heter and the tip of a Sensor wire. The Sensor wire would not pass beyond the first 1 or 2 mm into t he ureteral orifice. As a result, after multiple attempts, I then utilized a 0.035-inch Glidewire to try to gain access into the ureteral orifice and the distal ureter. Unfortunately, even the Glidewi re would not proceed up beyond a strictured region within the right ureteral orifice. As a result, a fter multiple attempts, efforts to gain access into his right collecting system were thwarted and fur ther attempts were discontinued. I thus removed the cystoscope and attempted direct vision ureterosc opy to visualize the area of stenosis and attempt to pass the Glidewire through that area. Unfortuna tely, while a very narrow opening was observed, it was smaller than the 0.035 inch Glidewire and thus would not allow the wire to pass beyond 1 mm into the ureteral orifice. As a result, I removed the semi-rigid ureteroscope and passed an 18-German Councill tip catheter over the superstiff wire, succe ssfully into his bladder and I placed 15 cc of sterile water in the balloon. The catheter was connec helen to a floor bag, and the patient was taken out of the lithotomy position. He was awakened from ge neral anesthesia, transferred to a stretcher, and then transferred to the recovery room in good condi tion. Complications: None. Discharge Disposition: He will require a right percutaneous nephrostomy to be placed with nephrouret eral stent preferred in order to gain access into his right collecting system. Alternatively, if he continues to have no pain, we may consider repeating the CT imaging first to see if any stone is stil l obstructing and if the UVJ strictures/stenosis at the ureteral orifice on the right may be causing any obstruction, thus necessitating that intervention. BUFFY/KIN Voice ID: [id number] Report ID: [id number]
[2022-05-02 22:39] VITALS: BMI 41.5
[2022-05-02] MEDS: INSULIN -REGULAR HUMAN 50 UNIT/0.5 ML ML SQ SCH (23:19)
[2022-05-03] MEDS: Ringers Lactate 1,000 ML IV SCH ×2 (01:33→07:33)
[2022-05-03] MEDS: INSULIN -REGULAR HUMAN 50 UNIT/0.5 ML ML SQ SCH (07:30)
[2022-05-03] MEDS ORDERED: LOSARTAN POTASSIUM 50 MG TABLET PO SCH (09:00)
[2022-05-03 09:03] VITALS: BP 139/78; TEMP 97.5
--- NOTE | 2022-05-03 09:10 | RAD REPORT ---
EXAM DESCRIPTION: CT - Abdomen Pelvis W/Wo Contrast - 05/03/2022 8:41 am CLINICAL HISTORY: RIGHT UVJ obstruction and ureterolithiasis exam ordered for right UVJ obstruction and ureterolithisis, cath bag clamped for CT contrast delay, p t had cysto procedure yesterday. hematuria noted in cath bag COMPARISON: Stone Protocol dated 03/13/2022 TECHNIQUE: Biphasic, helical CT imaging of the abdomen and pelvis was performed following 100 ml non -ionic IV contrast. No oral contrast administered. All CT scans are performed using dose optimization technique as appropriate and may include automated exposure control or mA/KV adjustment according to patient size. FINDINGS: No suspicious findings in the lung bases. The liver, spleen, and pancreas show no suspicious findings. Gallbladder and biliary tree are also wi thout suspicious finding. Precontrast imaging shows a 3.4 centimeter homogeneous fluid attenuation mass anterior mid left kidne y. This maintain simple cyst characteristics throughout all acquisitions. Both kidneys show punctate 2 mm sized calyx calculi, 1 in each kidney. Mild hydronephrosis of the right-side pelvis, calices and proximal ureter. There is a 7 millimeter mid right ureter obstructing calculus. From a KUB projectio n this is at the level of the L5 body. Arterial phase imaging shows prompt, symmetric cortical enhanc ement. Little if any delay age is identifiable on the venous phase imaging. No pyelonephritis or susp icious renal parenchymal process. Delayed imaging shows normal enhancement of the nondilated left col lecting system down to the bladder. Contrast is collecting in the dilated right collecting system pro ximal to the stone. No contrast is seen in the right ureter distal to the stone. No adrenal abnormali ties. Pre IV contrast imaging shows a urinary bladder mostly contracted around a Rodney catheter. There is h yperdense material within the bladder lumen measuring 74 HU. Patient has not been administered any co ntrast prior to this. This is likely hemorrhagic material in the lumen. The contracted state preclude s any accurate assessment of a bladder wall mass or bladder wall thickening. Delayed imaging shows a small amount of contrast collecting in the bladder. This surrounds the intermediate density hemorrhag ic material. No free air, extravasation of contrast or other finding for bladder perforation. No dilated bowel loops or bowel wall thickening. No free air, free fluid or inflammatory stranding. No hernia, mass or bulky lymphadenopathy. No suspicious bony findings. IMPRESSION: Approximately 7 mm obstructing calculus in the right mid ureter causing mild hydronephro sis proximal to the stone. Hemorrhagic material is evident in the urinary bladder which is contracted around a Rodney catheter. There is no evidence for perforation of the bladder. Contracted state of the bladder precludes accura te assessment of any bladder wall thickening or mass.
== END 2022-05-03 11:17 | disposition home or self-care (01) ==
LOC: OR 08:42 → 2ND 18:18
PROVIDERS: ADMIT Urology; ATTEND Urology
PROC: 0T7D8ZZ Dilation of Urethra, Via Natural or Artificial Opening Endoscopic (ICD-10-PCS; principal; 2022-05-02 10:30)
DX: N35.819 Other urethral stricture, male, unspecified site (principal); N13.2 Hydronephrosis with renal and ureteral calculous obstruction; R31.0 Gross hematuria; I10 Essential (primary) hypertension; E11.9 Type 2 diabetes mellitus without complications; Z79.899 Other long term (current) drug therapy
CPT/HCPCS: 36415; 51610; 74178; 74450; 80048; 82947; 85025; 85610; 87086; 87088; 93005; G0378; G0379; J0690; J1100; J1815; J2250; J2370; J2405; J2704; J3010; J7030; J7120; Q9967

== ENCOUNTER 2022-05-30 08:41 | Day surgery (SDC) | payer BC ==
[2022-05-29 16:29] LABS: SARS-CoV-2 Antigen Rapid Res Negative (Negative)
[~2022-05-30 08:41] MED LIST: AMPICILLIN SODIUM 2 GM in NA CHLORIDE 0.9% 100 ML IVPB SCH; Gentamicin Inj 240 MG in NA CHLORIDE 0.9% 100 ML IVPB SCH
[2022-05-30] MEDS ORDERED: NA CHLORIDE 0.9% 1,000 ML ONE ×2 (09:06→15:00)
[2022-05-30] MEDS ORDERED: propofoL 200 MG/20 ML VIAL IV ONE ×3 (09:44→14:25)
[2022-05-30] MEDS ORDERED: LIDOCAINE 2% MPF 5 ML VIAL ONE (09:45)
[2022-05-30] MEDS ORDERED: MIDAZOLAM HCL 2 MG/2 ML INJ ONE ×2 (09:45→09:49)
[2022-05-30] MEDS ORDERED: FENTANYL CITR 100 MCG/2 ML ONE ×3 (09:45→14:32)
[2022-05-30] MEDS ORDERED: ONDANSETRON 4 MG/2 ML VIAL ONE ×2 (09:48→09:49)
[2022-05-30] MEDS ORDERED: LIDOCAINE 1% MPF 5 ML VIAL ONE (09:49)
[2022-05-30] MEDS ORDERED: ROCURONIUM 50 MG/5 ML VIAL IV ONE (09:49)
[2022-05-30] MEDS ORDERED: dexAMETHasone 10 MG/ML VIAL ONE (14:11)
[2022-05-30] MEDS ORDERED: SUGAMMADEX SODIUM 200 MG/2 ML VIAL IV ONE (14:18)
[2022-05-30] MEDS ORDERED: VECURONIUM 10 MG/VIAL IV ONE (14:26)
[2022-05-30] MEDS ORDERED: NS 0.9% VIAL 10 ML ONE (14:27)
--- NOTE | 2022-05-30 15:24 | RAD REPORT ---
EXAM DESCRIPTION: RAD - Urethrocystogrphy Retrograde - 05/30/2022 3:15 pm CLINICAL HISTORY: STENT COMPARISON: Urethrocystogrphy Retrograde dated 05/02/2022 FINDINGS: Total fluoro time: 2 minutes and 48 seconds
[2022-05-30] MEDS ORDERED: HYDROCODONE/APAP 5/325 MG TAB PO PRN (16:09)
[2022-05-30] MEDS ORDERED: PHENAZOPYRIDINE 100MG TAB PO ONE ×2 (16:09→17:51)
[2022-05-30 16:32] VITALS: O2SAT 98
--- NOTE | 2022-05-30 16:57 | RAD REPORT ---
EXAM DESCRIPTION: RAD - Abdomen 1 View (KUB) - 05/30/2022 4:39 pm CLINICAL HISTORY: S/P R/ ANTEGRADE URETEROSCOPY W LITHOLASER, STENT Pain COMPARISON: Abdomen 1 View (KUB) dated 04/12/2022 FINDINGS: Right-sided double-J stent is in place with proximal and distal aspects in expected positi oning. No calcification is seen along the course of the stent.
[2022-05-30] MEDS ORDERED: HYDROCODONE/APAP 5/325 MG TAB ONE (17:51)
[2022-05-30 18:08] VITALS: BP 145/79; TEMP 97.5
--- NOTE | 2022-05-31 02:34 | OP ---
Surgeon: KD BURNETT Preoperative Diagnoses: 1. Right ureterolithiasis, 6 mm impacted ureteral calculus. 2. Right ureterovesical junction stenosis. Postoperative Diagnoses: 1. Right ureterolithiasis, 6 mm impacted ureteral calculus. 2. Right ureterovesical junction stenosis. Principal Procedures: 1. Right antegrade pyelography. 2. Right antegrade ureteroscopy with laser lithotripsy. 3. Right antegrade ureteral stone basketing. 4. Removal of right percutaneous nephrostomy tube. 5. Antegrade placement of right ureteral stent. Indication For Procedure: Mr. Olivarez is a 51-year-old gentleman who was seen with a prolonged obstructing 6 mm right ureteral calculus with resolved flank pain, but persistence of the calculus. He attempted a retrograde approach to ureteroscopy, but this was prohibitive due to a ureterovesical junction stenosis. As a result, he had placement of right percutaneous nephrostomy tube on May 16 and presents today for definitive management of his obstructing and impacted ureteral calculus. Procedure In Detail: The patient was consented in the preoperative holding area before being transferred to the operative suite where general anesthesia was induced. He was given ampicillin 2 g and gentamicin 2-3 mg IV antimicrobial prophylaxis, and pneumo boots were provided for DVT prophylaxis. He was already being treated with ciprofloxacin for prior positive urine cultures taken. The case was begun after flipping the patient into the prone position using an antegrade prone positioning pad to pad him and securing him to the table with pillows beneath his thighs and knees as well as a neuro-roll elevating his ankles to take the pressure off his feet and pelvis. His arms were flexed in the forward position and he was otherwise secured to the table appropriately. An 18-Sing[place]an coude-tipped urethral Rodney catheter was placed prior to flipping him into the prone position. The case was then begun by identifying the nephrostomy tube emanating from his right flank and prepping the nephrostomy tube using ChloraPrep in the area around it. We then draped the area accordingly and cut the nephrostomy tube in order to release the [place] loop technology and then passed a Sensor wire via the nephrostomy tube successfully into the collecting system. Of note, prior to passing the Sensor wire, an antegrade pyelogram was performed via the nephrostomy tube, confirming the appropriate location within the upper pole of the kidney and delineating the calices and proximal ureter. With the wire now coiled within the renal pelvis and into the upper pole, I removed the nephrostomy tube and passed over the wire, a 5-Singaporean ureteral access catheter, then using this to navigate the tip of the wire out of the upper pole and at this time down to the ureteropelvic junction and proximal ureter. The wire was successfully passed through the distal ureter beyond the point of obstruction due to the stone and into the bladder where it did coil as indicated by the presence of the catheter there. Over the wire, a 5-Singaporean ureteral access catheter was placed and contrast was injected, confirming the location intravesical. I then incised the skin approximately 1 cm in diameter and divided the subcutaneous tissues using a clamp. Then, using a 15-Singaporean ureteral access balloon, I dilated the skin and subcutaneous tissues down into the upper pole calyx of the kidney to ensure a smooth and patent dilated tract. Over the Sensor wire, which was in place as a safety wire, I was then able to pass via the tract a 12-[place]an dual-lumen catheter successfully into the proximal ureter. Here again, I performed an antegrade pyelogram, confirming the absence of any injury or leakage of contrast from the collecting system or the ureter. I then passed a Bentson guidewire via the dual-lumen catheter into the proximal and down into the mid ureter where it encountered the putatively obstructing stone, but would not pass, and coiled right at the level of the stone. I removed the dual-lumen catheter and passed a ureteral access sheath over the Bentson guidewire, leaving the Sensor wire outside of it as a safety wire secured to the drapery. I passed the ureteral access sheath into the proximal ureter down to the level of obstruction as observed fluoroscopically. Over the Bentson wire and using the ureteral access sheath, I passed a flexible ureteroscope down to the level of the stone, which was immediately visualized. Using pressurized normal saline irrigation and a 200 nm laser fiber with a power setting of 0.4 joule and 25 Hz, I was able to quickly fragment the stone into fragments that were smaller than approximately 1-2 mm. I was able to navigate the flexible ureteroscope, then beyond the point of obstruction from the stone into the distal ureter at the level of the ureterovesical junction where the wire did clearly traverse and into the bladder. I then utilized a 1.9-Sing[place]an basket to grasp any of the larger stone fragments within the distal ureter or present within the mid and proximal ureter and removed them and sent them for chemical analysis. I then surveyed the remainder of the proximal ureter into the renal pelvis and then performed antegrade pyeloscopy using the ureteroscope, surveying the lower pole and mid pole calices successfully. Antegrade injection of contrast via the ureteroscope confirmed that each of the calices had been visualized and no additional stones were present. I then backed the ureteral access sheath out while surveying the infundibulum and the upper pole calyx using the ureteroscope, confirming no additional stones, and then surveyed the tract on the way out to confirm no stone fragments were within the tract. We then discontinued ureteroscopy and I utilized a dual-lumen catheter over the indwelling Sensor safety wire to replace a Bentson guidewire at this time all the way into the bladder where it coiled alongside the safety wire. I removed the dual-lumen catheter and under fluoroscopic guidance passed a 6-Singaporean x 28 cm double-J ureteral stent over the Bentson guidewire and successfully with the tip into the bladder and with the proximal coil formed within the upper pole of the kidney as observed fluoroscopically. An additional coil was observed cystoscopically within the bladder alongside the urethral Rodney catheter and balloon there. The patient was then flipped back over to the supine position and then was extubated from general anesthesia. He was then transferred to the recovery room in good condition. Complications: None. Discharge Disposition: I would like for him to keep the ureteral stent for at least 4-6 weeks to allow healing of the stenotic UVJ, but also to manage the area of impaction of the stone that was prolonged in nature. We will then plan cystoscopy and right ureteral stent extraction in clinic in 4-6 weeks. BUFFY/KIN Voice ID: [id number] Report ID: [id number] RAKAN
== END 2022-05-30 17:58 | disposition home or self-care (01) ==
LOC: OR 08:41
PROVIDERS: ATTEND Urology
PROC: 0TC68ZZ Extirpation of Matter from Right Ureter, Via Natural or Artificial Opening Endoscopic (ICD-10-PCS; 2022-05-30)
PROC: 0T768DZ Dilation of Right Ureter with Intraluminal Device, Via Natural or Artificial Opening Endoscopic (ICD-10-PCS; 2022-05-30)
PROC: 0T9680Z Drainage of Right Ureter with Drainage Device, Via Natural or Artificial Opening Endoscopic (ICD-10-PCS; principal; 2022-05-30 11:45)
DX: N20.1 Calculus of ureter (principal); Q62.12 Congenital occlusion of ureterovesical orifice; Z20.822 Contact with and (suspected) exposure to COVID-19
CPT/HCPCS: 36415; 82947 ×2; 88300; 82360; 74018; 74450; 51610; 87811; 53899; 52332; J2704 ×2; J1580; J2250; J3010 ×2; J1100; J7030 ×2; J2405 ×2; J0290

== ENCOUNTER 2023-05-16 19:51 | Emergency (ER) | payer BC ==
--- OUTSIDE RECORDS SUMMARY | 2023-05-16 19:55 | XMS REPORT | Continuity of Care Document ---
:1970 Author Organization [facility] t Address [address] [facility] [address] [place] [address] Care Team Providers Name Role Phone SHARON TORRES Primary Care Physician Unavailable Piotr Torres Attending Clinician Unavailable KD AMARAL Attending Clinician Unavailable Kd Amaral MD Attending Clinician Virtual, Surgeon Attending Clinician Unavailable Pietro Hairston Attending Clinician Unavailable JAY LEE Attending Clinician Unavailable Piotr Torres Admitting Clinician Unavailable KD AMARAL Admitting Clinician Unavailable Payers Payer Name Policy Type Policy Number Effective Date Expiration Date S zachary [employer] 6 [id number] 2020 Common Spiri t Blue Shield of 00:00:00 - [facility] BCBS PPO POS [id number] 2020 EPO CHOICE 00:00:00 Problems Condition Condition Condition Status Onset Resolution Last Treating Co mments Source Name Details Category Date Date Treatment Clinician Date 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 [id number] Kidney Problem Common stone on Spirit right side - [facility] [id number] Acute Problem Common right [facility] flank pain - [facility] [id number] Hydronephr Problem Com mon osis, Spirit right [facility] [id number] Ureterolit Problem Com mon hiasis [facility] Hydronephr Hydronephr Problem C ommon osis with osis with Spir it renal and renal - [facility] ureteral calculous calculous obstructio Kristal es obstructio n Medica l n Center Allergies, Adverse Reactions, Alerts Allergy Allergy Status Severity Reaction(s) Onset Inactive Treating Comm ents Source Name Type Date Date Clinician NO KNOWN Drug Active [facility] ALLERG Class ity of [facility] NO KNOWN Allergy Active [facility] Social History Social Habit Start Date Stop Date Quantity Comments Source History of Tobacco Common Spirit - Use [facility] Sex Assigned At [birth year] [facility] 00:00:00 00:00:00 [facility] Smoking Status Start Date Stop Date Source Former Smoker 2022-07-19 00:00:00 2022-07-19 00:00:00 [facility] Medications Ordered Filled Start Stop Current Ordering Indication Dosage Frequency Signature Comments Components Source Medication Medication Date Date Medication? Clinician (SIG) Name Name losartan Yes 25mg QD Take [address] [facility] [facility] ([facility]) 25 05-16 by mouth Luke s MG tablet 19:32: daily. Medica l 13 Center Missing or Yes QD daily [facility] Non-Formula 05-16 Xigduo XR Kristal es ry 19:32: 10mg/1000m Medical Medication 13 g . Center Ozempic Ozempic No Ozempic (0.25 or (0.25 or (0.25 or 0.5 0.5 0.5 MG/DOSE) 2 MG/DOSE) 2 MG/DOSE) 2 MG/1.5ML MG/1.5ML MG/1.5ML losartan 20 losartan 20 No losartan mg mg 20 mg Vital Signs Vital Name Observation Time Observation Value Comments Source height 2022-07-19 10:45:00 67 [in_i] Common S pirit [facility] weight 2022-07-19 10:45:00 267 [lb_av] [facility] temperature 2022-07-19 10:45:00 97.6 [degF] [facility] bmi 2022-07-19 10:45:00 41.81 kg/m2 [facility] oximetry 2022-07-19 10:45:00 98 % [facility] respiratory rate 2022-07-19 10:45:00 16 /min Comm on Spirit [facility] blood pressure 2022-07-19 10:45:00 137 mm[Hg] Common [facility] - systolic [facility] blood pressure 2022-07-19 10:45:00 86 mm[Hg] Common [facility] - diastolic [facility] HEIGHT 2022-05-16 11:23:00 170.2 cm WEIGHT 2022-05-16 11:23:00 119.5 kg HEIGHT 2022-05-16 11:23:00 170.2 cm WEIGHT 2022-05-16 11:23:00 119.5 kg HEIGHT 2022-05-16 11:23:00 170.2 cm WEIGHT 2022-05-16 11:23:00 119.5 kg Systolic blood 2022-05-16 19:20:00 108 mm[Hg] [facility] Diastolic blood 2022-05-16 19:20:00 57 mm[Hg] [facility] Heart rate 2022-05-16 19:20:00 61 /min [facility] Respiratory rate 2022-05-16 19:20:00 16 /min [facility] Oxygen saturation in 2022-05-16 19:20:00 97 /min [facility] Arterial blood by Medical Ce nter Pulse oximetry Body temperature 2022-05-16 18:15:00 36.22 Anita [facility] Body height 2022-05-16 11:23:00 170.2 cm [facility] Body weight 2022-05-16 11:23:00 119.5 kg [facility] BMI 2022-05-16 11:23:00 41.26 kg/m2 [facility] Procedures Procedure Date / Time Performed Performing Clinician Sourc e IR NEPHROSTOMY TUBE 2022-05-16 16:15:00 Kd Amaral [facility] CHANGE - RIGHT [facility] ANG U/S GUIDANCE NEEDLE 2022-05-16 16:15:00 Kd Amaral CH I [facility] PLACEMENT [facility] IR PERCUTANEOUS 2022-05-16 16:15:00 [facility] PLACEMENT POCT-GLUCOSE METER 2022-05-16 12:35:00 Kd Amaral [facility] CBC W/PLT COUNT & AUTO 2022-05-16 12:24:00 Ana M Mayer I [facility] PROTHROMBIN TIME/INR 2022-05-16 12:24:[address] [facility] CBC W/PLT COUNT & AUTO 2022-05-16 12:24:00 Ana M Mayer I [facility] Plan of Care Planned Activity Planned Date Details Comments Source Future Scheduled 2023-06-08 Influenza Vaccine (#1) [facility] 00:00:00 [code = Influenza Vaccine [facility] (#1)] Future Scheduled 2022-10-[address] [facility] 00:00:00 (12+) [code = DEPRESSION [facility] SCREENING (12+)] Future Scheduled 2020 SHINGLES VACCINES ([address] [facility] 00:00:00 2) [code = SHINGLES Medical Center VACCINES (1 of 2)] Future Scheduled 2005 Lipid panel (procedure) [facility] 00:00:00 [code = 66036263] Medical Ce nter Future Scheduled 1989 DTAP/TDAP/TD VACCINES ([address] [facility] 00:00:00 - Tdap) [code = Medical Cent er DTAP/TDAP/TD VACCINES (1 - Tdap)] Future Scheduled 1988 HEPATITIS C SCREENING [facility] 00:00:00 [code = HEPATITIS C Medical Center SCREENING] Future Scheduled 1985 Human immunodeficiency [facility] 00:00:00 virus screening Medical Cent er (procedure) [code = 378235726] Future Scheduled [address] [facility] Test 00:00:00 Counseling and Screening [facility] (12+) [code = Tobacco Cessation Counseling and Screening (12+)] Future Scheduled 1971-02-06 COVID-19 VACCINE (#1) [facility] 00:00:00 [code = COVID-19 VACCINE [facility] (#1)] Future Scheduled 1970 CT Colonography (combo) [facility] 00:00:00 [code = CT Colonography [facility] (combo)] Future Scheduled 1970 Screening for malignant [facility] Test 00:00:00 neoplasm of colon Medical Ce nter (procedure) [code = 400681878] Future Scheduled 1970 Screening for malignant [facility] Test 00:00:00 neoplasm of colon Medical Ce nter (procedure) [code = 073329151] Future Scheduled 1970 Screening for malignant [facility] Test 00:00:00 neoplasm of colon Medical Ce nter (procedure) [code = 449085759] Future Scheduled 1970 Screening for malignant [facility] Test 00:00:00 neoplasm of colon Medical Ce nter (procedure) [code = 802871369] Future Scheduled 1970 Sigmoidoscopy [code = [facility] 00:00:00 Sigmoidoscopy] Medical Cente r Encounters Start End Encounter Admission Attending Care Care Encounter Source Date/Time Date/Time Type Type Clinicians Facility Department ID 2022-07-[address] [facility] [id number] Common 10:34:[address] [facility] 2022-05-[address] [facility] [id number] Common 14:42:[address] [facility] 2022-04-[address] [facility] [id number] Common 12:56:[address] [facility] 2022-07-19 2022-07-[address] [facility] [id number] Co mmon 00:00:00 00:00:00 VISIT Spirit ESTAB PT - [facility]I LEVEL 2 [facility] 2022-05-16 2022-05-16 Outpatient MECHE AMARAL [facility] [id number] [facility] 15:32:57 23:59:00 [facility] 2022-05-16 2022-05-16 [facility] Munir [facility] [id number] 13:00:00 23:59:00 Encounter [facility] 2022-05-16 2022-05-16 Outpatient MECHE AMARAL [facility] Surgery [id number] [facility] 11:09:00 19:31:00 [facility] 2022-05-16 2022-05-16 [facility] [id number] 11:09:00 19:31:00 Encounter [facility] 2022-05-16 2022-05-16 [facility] [id number] 13:00:00 13:30:00 Surgeon [facility] 2022-05-16 2022-05-16 [facility] [id number] 00:00:00 00:00:00 Only Pietro Pete [facility] 2022-05-16 2022-05-16 Travel [facility] [id number] [facility] 00:[facility]00 00:00:00 [facility] 2020-07-05 2020-07-05 Outpatient Charla LEE [facility] [id number] [facility] 09:50:00 09:50:00 JAY carcamo [facility] Results Test Description Test Test Comments Results Result Sour e Time Comments ANG, NEPHROSTOMY 2022-05- Reason for TUBE CHANGE, 10 Exam:->Right kidney RIGHT 15:41:00 stone on right, [facility]dr[facility]phrosis,[facility] , [facility]reterolithiasis CENTERName: BRITTNI OLIVAREZ : 1970 Sex: M FINAL REPORT PROCEDURE: Right percutaneous nephrostogram and percutaneous nephrostomy catheter placement Procedural PersonnelAttending physician(s): Aiyana Slaughter physician(s): Quan Ku physician(s): NoneAdvanced practice provider(s): None Pre-procedure diagnosis: Urinary obstruction, Right ureteral stonePost-procedure diagnosis: SameIndication: Urinary obstructionCatheter(s) placed because the previous catheter(s) became dislodged within 30 days of placement (QCDR): NoAdditional clinical history: None Complications: No immediate complications. IMPRESSION: Successful placement of 10Fr right percutaneous nephrostomy tube with locking loop in the renal pelvis. Plan: Routine exchange in 8-10 weeks or sooner if needed. ____ PROCEDURE SUMMARY- Target organ: Right [place] kidney- Image-guided placement of genitourinary catheter(s)- Additional procedure(s): None PROCEDURE DETAILS: Pre-procedureConsent: Informed consent for the procedure including risks, benefits and alternatives was obtained and time-out was performed prior to the procedure.Preparation: The site was prepared and draped using maximal sterile barrier technique including cutaneous antisepsis. Anesthesia/sedationLev el of anesthesia/sedation: Moderate sedation (conscious sedation) 2 mg Versed, 100 mcg fentanylAnesthesia/sed ation administered by: Independent trained observer under attending supervision with continuous monitoring of the patient\X2019\s level of consciousness and physiologic statusTotal intra-service sedation time (minutes): 30 Right genitourinary catheter placementLocal anesthesia was administered. Sonographic evaluation demonstrates no significant hydronephrosis. The only visible slightly dilated calyx was in the upper pole. A needle was advanced into an upper pole calyx under ultrasound and fluoroscopy guidance. A wire was advanced, the tract was serially dilated and a nephrostomy tube was placed. Contrast injection was performed.Genitourinar y catheter placed: 10 Fr Cook multipurpose Findings: Locking loop in renal pelvis.External catheter securement: Non-absorbable suture ContrastContrast agent: Isovue-300 Radiation DoseFluoroscopy time (minutes): 1.5 Reference air kerma (mGy): 18.9 Additional DetailsAdditional description of procedure: NoneEquipment details: NoneSpecimens removed: None. A sample was not sent for analysis.Estimated blood loss (mL): Less than 10Standardized report: _Jesus t_v3 AttestationSigner name: Johny Rogers attest that I was present for the entire procedure. I reviewed the stored images and agree with the report as written. Signed: Johny Aleman Verified Date/Time: 05/17/2022 15:41:12 [facility], U/S 2022-05- Reason for GUIDANCE NEEDLE 10 Exam:->Right kidney PLACEMENT 15:41:00 stone on right, [facility] t , Ureterolithiasis CENTERName: BRITTNI OLIVAREZ : 1970 Sex: M FINAL REPORT PROCEDURE: Right percutaneous nephrostogram and percutaneous nephrostomy catheter placement Procedural PersonnelAttending physician(s): Aiyana Slaughter physician(s): Quan Ku physician(s): NoneAdvanced practice provider(s): None Pre-procedure diagnosis: Urinary obstruction, Right ureteral stonePost-procedure diagnosis: SameIndication: Urinary obstructionCatheter(s) placed because the previous catheter(s) became dislodged within 30 days of placement (QCDR): NoAdditional clinical history: None Complications: No immediate complications. IMPRESSION: Successful placement of 10Fr right percutaneous nephrostomy tube with locking loop in the renal pelvis. Plan: Routine exchange in 8-10 weeks or sooner if needed. ____ PROCEDURE SUMMARY- Target organ: Right [place] kidney- Image-guided placement of genitourinary catheter(s)- Additional procedure(s): None PROCEDURE DETAILS: Pre-procedureConsent: Informed consent for the procedure including risks, benefits and alternatives was obtained and time-out was performed prior to the procedure.Preparation: The site was prepared and draped using maximal sterile barrier technique including cutaneous antisepsis. Anesthesia/sedationLev el of anesthesia/sedation: Moderate sedation (conscious sedation) 2 mg Versed, 100 mcg fentanylAnesthesia/sed ation administered by: Independent trained observer under attending supervision with continuous monitoring of the patient\X2019\s level of consciousness and physiologic statusTotal intra-service sedation time (minutes): 30 Right genitourinary catheter placementLocal anesthesia was administered. Sonographic evaluation demonstrates no significant hydronephrosis. The only visible slightly dilated calyx was in the upper pole. A needle was advanced into an upper pole calyx under ultrasound and fluoroscopy guidance. A wire was advanced, the tract was serially dilated and a nephrostomy tube was placed. Contrast injection was performed.Genitourinar y catheter placed: 10 Fr Cook multipurpose Findings: Locking loop in renal pelvis.External catheter securement: Non-absorbable suture ContrastContrast agent: Isovue-300 Radiation DoseFluoroscopy time (minutes): 1.5 Reference air kerma (mGy): 18.9 Additional DetailsAdditional description of procedure: NoneEquipment details: NoneSpecimens removed: None. A sample was not sent for analysis.Estimated blood loss (mL): Less than 10Standardized report: Pauline t_v3 AttestationSigner name: Johny AlemanAnders attest that I was present for the entire procedure. I reviewed the stored images and agree with the report as written. Signed: Johny Alemaneport Verified Date/Time: 05/17/2022 15:41:12 [facility], 2022-05- Reason for NEPHROSTOMY, 10 Exam:->Right kidney PERC, EXTERNAL 15:41:00 stone on right, [facility] DRA[facility] hyrdronephrosis,[facility] - MEDICAL t , Ureterolithiasis CENTERName: OLIVAREZBRITTNI : 1970 Sex: M FINAL REPORT PROCEDURE: Right percutaneous nephrostogram and percutaneous nephrostomy catheter placement Procedural PersonnelAttending physician(s): Johny Aleman MDFellstefanie physician(s): Quan Ku physician(s): NoneAdvanced practice provider(s): None Pre-procedure diagnosis: Urinary obstruction, Right ureteral stonePost-procedure diagnosis: SameIndication: Urinary obstructionCatheter(s) placed because the previous catheter(s) became dislodged within 30 days of placement (QCDR): NoAdditional clinical history: None Complications: No immediate complications. IMPRESSION: Successful placement of 10Fr right percutaneous nephrostomy tube with locking loop in the renal pelvis. Plan: Routine exchange in 8-10 weeks or sooner if needed. ____ PROCEDURE SUMMARY- Target organ: Right [place] kidney- Image-guided placement of genitourinary catheter(s)- Additional procedure(s): None PROCEDURE DETAILS: Pre-procedureConsent: Informed consent for the procedure including risks, benefits and alternatives was obtained and time-out was performed prior to the procedure.Preparation: The site was prepared and draped using maximal sterile barrier technique including cutaneous antisepsis. Anesthesia/sedationLev el of anesthesia/sedation: Moderate sedation (conscious sedation) 2 mg Versed, 100 mcg fentanylAnesthesia/sed ation administered by: Independent trained observer under attending supervision with continuous monitoring of the patient\X2019\s level of consciousness and physiologic statusTotal intra-service sedation time (minutes): 30 Right genitourinary catheter placementLocal anesthesia was administered. Sonographic evaluation demonstrates no significant hydronephrosis. The only visible slightly dilated calyx was in the upper pole. A needle was advanced into an upper pole calyx under ultrasound and fluoroscopy guidance. A wire was advanced, the tract was serially dilated and a nephrostomy tube was placed. Contrast injection was performed.Genitourinar y catheter placed: 10 Fr Cook multipurpose Findings: Locking loop in renal pelvis.External catheter securement: Non-absorbable suture ContrastContrast agent: Isovue-300 Radiation DoseFluoroscopy time (minutes): 1.5 Reference air kerma (mGy): 18.9 Additional DetailsAdditional description of procedure: NoneEquipment details: NoneSpecimens removed: None. A sample was not sent for analysis.Estimated blood loss (mL): Less than 10Standardized report: _NidaterPlacemen t_v3 AttestationSigner name: Johny Rogers attest that I was present for the entire procedure. I reviewed the stored images and agree with the report as written. Signed: Johny Alemaneport Verified Date/Time: 05/17/2022 15:41:12 HROMBIN TIME/INR 2022-05-16 13:06:17 Test Item Value Reference Range Interpretation Comme nts PROTIME (BEAKER) (test code 13.1 seconds 11.9-14.2 = 759) INR (BEAKER) (test code = 1.05 See_Comment [ Automated message] The [employer] system which ge nerated this result transmit helen reference range: <=5.90. The reference range was not u sed to interpret this result as normal/abnormal . RECOMMENDED COUMADIN/WARFARIN INR THERAPY RANGESSTANDARD DOSE: 2.0 - 3.0 Includes: PROPHYLAXIS for venous thrombosis, systemic embolization; TREATMENT for venous thrombosis and/or pulmonary embolus.HIGH RISK: Target INR is 2.5-3.5 for patients with mechanical heart valves.CBC W/PLT COUNT & AUTO [id number] 13:00:55 Test Item Value Reference Range Interpretation Comments WHITE BLOOD CELL COUNT (BEAKER) 8.5 K/ L 3.5-10.5 (test code = 775) RED BLOOD CELL COUNT (BEAKER) 5.06 M/ L 4.63-6.08 (test code = 761) HEMOGLOBIN (BEAKER) (test code = 14.6 GM/DL 13.7-17.5 410) HEMATOCRIT (BEAKER) (test code = 44.2 % 40.1-51.0 411) MEAN CORPUSCULAR VOLUME (BEAKER) 87.4 fL 79.0-92.2 (test code = 753) MEAN CORPUSCULAR HEMOGLOBIN 28.9 pg 25.7-32.2 (BEAKER) (test code = 751) MEAN CORPUSCULAR HEMOGLOBIN CONC 33.0 GM/DL 32.3-36.5 (BEAKER) (test code = 752) RED CELL DISTRIBUTION WIDTH 14.1 % 11.6-14.4 (BEAKER) (test code = 412) PLATELET COUNT (BEAKER) (test 300 K/CU MM 150-450 code = 756) MEAN PLATELET VOLUME (BEAKER) 9.0 fL 9.4-12.4 L (test code = 754) NUCLEATED RED BLOOD CELLS 0 /100 WBC 0-0 (BEAKER) (test code = 413) NEUTROPHILS RELATIVE PERCENT 66 % (BEAKER) (test code = 429) LYMPHOCYTES RELATIVE PERCENT 24 % (BEAKER) (test code = 430) MONOCYTES RELATIVE PERCENT 7 % (BEAKER) (test code = 431) EOSINOPHILS RELATIVE PERCENT 2 % (BEAKER) (test code = 432) BASOPHILS RELATIVE PERCENT 1 % (BEAKER) (test code = 437) NEUTROPHILS ABSOLUTE COUNT 5.60 K/ L 1.78-5.38 H (BEAKER) (test code = 670) LYMPHOCYTES ABSOLUTE COUNT 2.01 K/ L 1.32-3.57 (BEAKER) (test code = 414) MONOCYTES ABSOLUTE COUNT (BEAKER) 0.57 K/ L 0.30-0.82 (test code = 415) EOSINOPHILS ABSOLUTE COUNT 0.14 K/ L 0.04-0.54 (BEAKER) (test code = 416) BASOPHILS ABSOLUTE COUNT (BEAKER) 0.07 K/ L 0.01-0.08 (test code = 417) IMMATURE GRANULOCYTES-RELATIVE 1 % 0-1 PERCENT (BEAKER) (test code = 2801) POC-Glucose [id number] 12:46:31 Test Item Value Reference Range Interpretation Comments POC-Glucose Meter (test 85 mg/dL 70-110 : No tified RN/MD: code = 1538) TESTED AT [address], [address]: [employer] Teacher/Techni lexx ID = [id number] for Tierra Hamilton Lab Interpretation (test Normal code = 12895-8) [facility] [id number] 12:46:31 Test Item Value Reference Range Interpretation Comments POC-GLUCOSE METER 85 mg/dL 70-110 : Notified RN/MD: TESTED (BEAKER) (test code = AT [address] 1538) [facility], [address]: [employer] Teacher/Techni lexx ID = [id number] for Alyce Guillaume
[2023-05-16] MEDS ORDERED: ONDANSETRON 4 MG/2 ML VIAL ONE (21:03)
[2023-05-16] MEDS ORDERED: KETOROLAC 30 MG/ML INJ ONE (21:03)
[2023-05-16 21:21] LABS: Absolute Lymphocytes (CBC) 3.1 K/uL (0.7-4.9); Lymphocytes % 23.6 % (15.3-44.8); MCV 88.4 fL (80-100); MPV 7.1 fL (7.6-11.3); Platelets 302 thou/uL (152-406); RBC Red Blood Cell Count 5.43 M/uL (4.33-5.43)
--- NOTE | 2023-05-16 21:29 | RAD REPORT ---
EXAM DESCRIPTION: CTStone Protocol - 05/16/2023 9:10 pm CLINICAL HISTORY: left flank pain COMPARISON: Abdomen Pelvis W/Wo Contrast dated 05/03/2022; Stone Protocol dated 03/13/2022; Stone Pro tocol dated 07/26/2021 TECHNIQUE: CT of the abdomen and pelvis was performed. All CT scans are performed using dose optimization technique as appropriate and may include automated exposure control or mA/KV adjustment according to patient size. FINDINGS: Lower chest: No acute abnormality. Liver: No acute abnormality or suspicious lesions. Biliary: No biliary ductal dilatation. Stomach: No significant focal abnormality. Duodenum: No significant focal abnormality. Pancreas: No significant abnormality. Spleen: No significant abnormality. Adrenal: No suspicious lesions. Kidney/ureter: No hydronephrosis. Right nephrolithiasis with largest stone measuring 3 millimeters. A left renal cyst is present. Retroperitoneum: No retroperitoneal adenopathy. Vascular: No aneurysm. Bowel: Diverticulosis. No evidence of acute diverticulitis. Normal appendix.. Peritoneum: No ascites or free air. Bladder: 3 mm stone in the bladder, near the right UVJ but felt to be within the bladder lumen. Reproductive: Prostatomegaly. Bones: No acute fracture. Other: n/a IMPRESSION: 3 mm stone likely within the bladder lumen rather than impacted at the right UVJ. No hyd ronephrosis.
[2023-05-16 21:31] LABS: Albumin 3.7 g/dL (3.4-5.0); Bilirubin Total 0.3 mg/dL (0.2-1.0); Potassium 3.7 mEq/L (3.5-5.1); Protein, Total 7.8 g/dL (6.4-8.2)
--- NOTE | 2023-05-17 00:39 | EDPHYS ---
Physician Documentation [facility] Name: Myke Olivarez Age: 52 yrs Sex: Male : 1970 Arrival Date: 05/16/2023 Time: 19:51 Bed DX4 Private MD: ED Physician Marco Antonio Miller HPI: 05/16 20:45 This 52 yrs old Male presents to ER via Ambulatory with complaints of cp Abdominal Pain, Nausea/Vomiting. 20:45 The patient complains of pain in the left flank. cp 20:45 The pain radiates to the left mid back. Onset: The symptoms/episode began/occurred cp today. 20:45 Associated signs and symptoms: Pertinent positives: nausea, Pertinent negatives: cp diarrhea, fever, headache, pain radiating to the lower extremities, vomiting. Severity of pain: in the emergency department the pain is unchanged despite home interventions. The patient has experienced similar episodes in the past, today's symptoms are similar, to when the patient was apparently diagnosed with kidney stone. Historical: - Allergies: 20:13 No Known Allergies; cm10 - PMHx: 20:13 diabetes mellitus; Hypertensive disorder; kidney stones; cm10 - Immunization history:: Adult Immunizations unknown. - Social history:: Smoking status: Patient denies any tobacco usage or history of. ROS: 20:50 Constitutional: Negative for body aches, chills, fever, poor PO intake. cp 20:50 Eyes: Negative for injury, pain, redness, and discharge. cp 20:50 Cardiovascular: Negative for chest pain, palpitations. 20:50 Respiratory: Negative for cough, shortness of breath, wheezing. 20:50 Abdomen/GI: Positive for nausea. 20:50 Back: Positive for flank pain, on the left, Negative for injury or acute deformity, decreased range of motion. 20:50 Neuro: Negative for altered mental status, dizziness, headache, numbness, syncope, weakness. 20:50 All other systems are negative. Exam: 20:50 Constitutional: The patient appears in no acute distress, alert, awake, non-toxic, well cp developed, well nourished, obese, uncomfortable. 20:50 Head/Face: Normocephalic, atraumatic. cp 20:50 Eyes: Periorbital structures: appear normal, Conjunctiva: normal, no exudate, no injection, Sclera: no appreciated abnormality, Lids and lashes: appear normal, bilaterally. 20:50 ENT: External ear(s): are unremarkable, Nose: is normal, Mouth: Lips: moist, Oral mucosa: pink and intact, moist, Posterior pharynx: is normal, airway is patent, no erythema, no exudate. 20:50 Chest/axilla: Inspection: normal. 20:50 Cardiovascular: Rate: normal, Rhythm: regular, Edema: is not appreciated, JVD: is not appreciated. 20:50 Respiratory: the patient does not display signs of respiratory distress, Respirations: normal, no use of accessory muscles, no retractions, labored breathing, is not present, Breath sounds: are clear throughout, no decreased breath sounds, no stridor, no wheezing. 20:50 Abdomen/GI: Inspection: obese Bowel sounds: active, all quadrants, Palpation: soft, in all quadrants, moderate abdominal tenderness, in the anterior aspect of left lateral abdomen and posterior aspect of left lateral abdomen, rebound tenderness, is not appreciated, involuntary guarding, is not appreciated. 20:50 Neuro: Orientation: to person, place \T\ time. Mentation: is normal, Motor: moves all fours, strength is normal, Gait: is steady, at a normal pace, without difficulty. Vital Signs: 20:11 BP 136 / 91; Pulse 60; Resp 18 S; Temp 98.5(O); Pulse Ox 97% on R/A; Weight 124.74 kg; cm10 Height 5 ft. 7 in. ; Pain 06/17; 05/17 01:18 BP 131 / 73; Pulse 65; Resp 18; Temp 97.8; Pulse Ox 99% on R/A; rv1 05/16 20:11 Body Mass Index 43.07 (124.74 kg, 170.18 cm) cm10 05/16 20:11 Pain Scale: Adult cm10 MDM: 05/16 20:14 Patient medically screened. [facility] 05/17 00:38 Data reviewed: vital signs, nurses notes, lab test result(s), radiologic studies, CT cp scan. 00:38 I considered the following discharge prescriptions or medication management in the emergency department Medications were administered in the Emergency Department. See MAR. Care significantly affected by the following chronic conditions: Diabetes, Hypertension. Counseling: I had a detailed discussion with the patient and/or guardian regarding: the historical points, exam findings, and any diagnostic results supporting the discharge/admit diagnosis, lab results, radiology results, to return to the emergency department if symptoms worsen or persist or if there are any questions or concerns that arise at home. Response to treatment: the patient's symptoms have resolved after treatment, the patient's pain is gone, and as a result, I will discharge patient. 05/16 20:45 Order name: CBC with Diff; Complete Time: 21:50 cp 05/17 00:37 Interpretation: Normal except: WBC 13.00; NEUT A 8.8; MPV 7.1. cp 05/16 20:45 Order name: CMP; Complete Time: 21:50 cp 05/17 00:37 Interpretation: Normal except: CL 108; GLUC 135; BUN 21; GFR 71; AST 10; CA 8.4; GLOB cp 4.1; A/G 0.9. 05/16 20:45 Order name: Lipase; Complete Time: 21:50 cp 05/16 20:45 Order name: Urinalysis w/ reflexes; Complete Time: 01:09 cp 05/17 01:09 Interpretation: Normal except: Urine SG > 1.030; UGLUC 4+ (Over); UBLD Trace; URBC cp 11-20. 05/16 20:45 Order name: CT Stone Protocol; Complete Time: 21:50 cp 05/16 21:50 Interpretation: Report reviewed. 05/16 20:45 Order name: IV Saline Lock; Complete Time: 21:01 cp 05/16 20:45 Order name: Labs collected and sent; Complete Time: 21:01 cp 05/17 00:38 Order name: Strain Urine; Complete Time: 01:16 cp Administered Medications: 05/16 21:01 Drug: TORadol - Ketorolac IVP 15 mg Route: IVP; Site: right hand; cm10 05/17 00:35 Follow up: Response: No adverse reaction; Pain is decreased cm10 05/16 21:01 Drug: Ondansetron IVP 4 mg Route: IVP; Site: right hand; cm10 05/17 00:35 Follow up: Response: No adverse reaction cm10 00:35 Drug: NS 0.9% IV 1000 ml Route: IV; Rate: 1 bolus; Site: right hand; cm10 01:31 Follow up: Response: No adverse reaction; IV Status: Completed infusion cm10 01:16 Drug: Rocephin IV 1 grams Route: IV; Rate: calculated rate; Site: right hand; cm10 01:31 Follow up: Response: No adverse reaction; IV Status: Completed infusion cm10 Disposition Summary: 05/17/23 00:39 Discharge Ordered Location: Home cp Problem: new cp Symptoms: have improved cp Condition: Stable cp Diagnosis - Kidney Stone/ Calculus in bladder cp - Unspecified renal colic cp Followup: cp - With: Norman Amaral MD - When: 2 - 3 days - Reason: Worsening of condition Discharge Instructions: - Discharge Summary Sheet cp - Kidney Stones cp - Renal Colic cp - Bladder Stone cp Forms: - Medication Reconciliation Form cp - Thank You Letter cp - Antibiotic Education cp - Prescription Opioid Use cp - Patient Portal Instructions cp Prescriptions: - Ibuprofen 800 mg Oral Tablet - take 1 tablet by ORAL route every 8 hours As needed take with food; 30 tablet; cp Refills: 0, Product Selection Permitted Signatures: Dispatcher [employer] Marco Antonio Sandy MD MD cha Page, Corey PA PA Belkis Haque, RN RN cm10
--- NOTE | 2023-05-17 00:39 | ER ---
Nurse's Notes [facility] Name: Myke Olivarez Age: 52 yrs Sex: Male : 1970 Arrival Date: 05/16/2023 Time: 19:51 Bed DX4 Private MD: Diagnosis: Kidney Stone/ Calculus in bladder;Unspecified renal colic Presentation: 05/16 20:11 Chief complaint: Patient states: right sided flank pain. Pt states that pain feels cm10 similar to when he had kidney stones. Pt reports nausea. Coronavirus screen: Vaccine status: Patient reports receiving the 2nd dose of the covid vaccine. Client denies travel out of the [place] in the last 14 days. Ebola Screen: No symptoms or risks identified at this time. Initial Sepsis Screen: Does the patient meet any 2 criteria? No. Patient's initial sepsis screen is negative. Does the patient have a suspected source of infection? No. Patient's initial sepsis screen is negative. Risk Assessment: Do you want to hurt yourself or someone else? Patient reports no desire to harm self or others. Onset of symptoms was May 16, 2023. 20:11 Method Of Arrival: Ambulatory cm10 20:11 Acuity: SANTINO 3 cm10 Historical: - Allergies: 20:13 No Known Allergies; cm10 - PMHx: 20:13 diabetes mellitus; Hypertensive disorder; kidney stones; cm10 - Immunization history:: Adult Immunizations unknown. - Social history:: Smoking status: Patient denies any tobacco usage or history of. Screenin/10 01:16 [facility] ED Fall Risk Assessment (Adult) History of falling in the last 3 months, cm10 including since admission No falls in past 3 months (0 pts) Confusion or Disorientation No (0 pts) Intoxicated or Sedated No (0 pts) Impaired Gait No (0 pts) Mobility Assist Device Used No (0 pt) Altered Elimination No (0 pt) Score/Fall Risk Level 0 - 2 = Low Risk Oriented to surroundings, Maintained a safe environment, Hourly rounding (assess needs \T\ fall precautionary measures) done. Abuse screen: Denies threats or abuse. Denies injuries from another. Nutritional screening: No deficits noted. Tuberculosis screening: No symptoms or risk factors identified. Assessment: 01:16 General: Appears in no apparent distress. comfortable, Behavior is calm, cooperative. cm10 Pain: Denies pain. Neuro: No deficits noted. Level of Consciousness is awake, alert, obeys commands, Oriented to person, place, time, situation. Respiratory: No deficits noted. Airway is patent Respiratory effort is even, unlabored, Respiratory pattern is regular, symmetrical. GI: Bowel sounds Abd is soft. Vital Signs: 05/16 20:11 BP 136 / 91; Pulse 60; Resp 18 S; Temp 98.5(O); Pulse Ox 97% on R/A; Weight 124.74 kg; cm10 Height 5 ft. 7 in. ; Pain 06/17; 05/17 01:18 BP 131 / 73; Pulse 65; Resp 18; Temp 97.8; Pulse Ox 99% on R/A; rv1 05/16 20:11 Body Mass Index 43.07 (124.74 kg, 170.18 cm) cm10 05/16 20:11 Pain Scale: Adult cm10 ED Course: 05/16 19:54 Patient arrived in ED. jj6 20:08 Marco Antonio Radford PA is PHCP. cp 20:08 Marco Antonio Miller MD is Attending Physician. cp 20:13 Triage completed. cm10 20:13 Arm band placed on Patient placed in waiting room. cm10 21:01 CBC with Diff Sent. cm10 21:01 CMP Sent. cm10 21:01 Lipase Sent. cm10 21:01 Initial lab(s) drawn, by me, sent to lab. Inserted saline lock: 20 gauge in right hand, cm10 using aseptic technique. Blood collected. 21:11 CT Stone Protocol In Process Unspecified. EDMS 05/17 00:35 Urinalysis w/ reflexes Sent. cm10 00:38 Norman Amaral MD is Referral Physician. cp 01:17 Patient has correct armband on for positive identification. Provided Education on: N/A. cm10 01:17 No provider procedures requiring assistance completed. IV discontinued, intact, cm10 bleeding controlled, No redness/swelling at site. Pressure dressing applied. Administered Medications: 05/16 21:01 Drug: TORadol - Ketorolac IVP 15 mg Route: IVP; Site: right hand; cm10 05/17 00:35 Follow up: Response: No adverse reaction; Pain is decreased cm10 05/16 21:01 Drug: Ondansetron IVP 4 mg Route: IVP; Site: right hand; cm10 08 00:35 Follow up: Response: No adverse reaction cm10 00:35 Drug: NS 0.9% IV 1000 ml Route: IV; Rate: 1 bolus; Site: right hand; cm10 01:31 Follow up: Response: No adverse reaction; IV Status: Completed infusion cm10 01:16 Drug: Rocephin IV 1 grams Route: IV; Rate: calculated rate; Site: right hand; cm10 01:31 Follow up: Response: No adverse reaction; IV Status: Completed infusion cm10 Medication: 01:17 VIS not applicable for this client. cm10 Outcome: 00:39 Discharge ordered by MD. cp 01:31 Discharged to home ambulatory, with family. cm10 01:31 Condition: good 01:31 Discharge instructions given to patient, Instructed on discharge instructions, follow up and referral plans. medication usage, Demonstrated understanding of instructions, follow-up care, medications, Prescriptions given X 1. 01:32 Patient left the ED. cm10 Signatures: Dispatcher [employer] EDMS Marco Antonio Radford PA PA cp Jeffries, Jennifer jj6 Whitney Subramanian rv1 Belkis Calle, RN RN cm10
[2023-05-17] MEDS ORDERED: NA CHLORIDE 0.9% 1,000 ML ONE (00:41)
[2023-05-17 00:50] LABS: Renal Epithelial <5 /HPF (None Seen); Specific Gravity > 1.030 (1.005-1.030); Urine Bacteria <20 /HPF (<20); Urine Bilirubin NEGATIVE (Negative); Urine Blood Trace (Negative); Urine Clarity Clear (Clear); Urine Color Light-Yellow (Yellow); Urine Glucose 4+ (Over) (Negative); Urine Mucus 1+ /HPF (None Seen); Urine Protein NEGATIVE (Negative); Urine Urobilinogen Normal (Normal); Urine pH 5.5 (5.0-7.0)
[2023-05-17] MEDS ORDERED: CEFTRIAXONE 1000 MG/VIAL ONE (01:22)
[2023-05-17 02:39] VITALS: BP 131/73; TEMP 97.8; O2SAT 99
== END 2023-05-17 01:32 | disposition home or self-care (01) ==
LOC: ER 19:51
DX: N20.0 Calculus of kidney (principal); N21.0 Calculus in bladder; N23 Unspecified renal colic; Z87.442 Personal history of urinary calculi; I10 Essential (primary) hypertension; E11.9 Type 2 diabetes mellitus without complications
CPT/HCPCS: 96361; 85025; 81001; 36415; 83690; 80053; 76377; 74176; 96375; 96374; 99284; J2405; J7030; J0696

== ENCOUNTER 2024-03-20 21:55 | Emergency (ER) | payer BC, SELFPAY ==
[2024-03-20] MEDS ORDERED: CYCLOBENZAPRINE 10 MG TAB ONE (23:07)
[2024-03-20] MEDS ORDERED: HYDROCODONE/APAP 5/325 MG TAB ONE (23:07)
--- NOTE | 2024-03-20 23:51 | ER ---
Nurse's Notes [facility] Name: Myke Olivarez Age: 53 yrs Sex: Male : 1970 Arrival Date: 03/20/2024 Time: 21:55 Bed 15 Private MD: Diagnosis: Sciatica, left side;Pain in left leg Presentation: 03/20 22:05 Chief complaint: Patient states: pt had an injury at work on Sunday and is c/o left leg as6 pain and numbness. Coronavirus screen: At this time, the client does not indicate any symptoms associated with coronavirus-19. Ebola Screen: No symptoms or risks identified at this time. Initial Sepsis Screen: Does the patient meet any 2 criteria? No. Patient's initial sepsis screen is negative. Does the patient have a suspected source of infection? No. Patient's initial sepsis screen is negative. Risk Assessment: Do you want to hurt yourself or someone else? Patient reports no desire to harm self or others. Onset of symptoms was March 17, 2024. 22:05 Method Of Arrival: Ambulatory as6 22:05 Acuity: SANTINO 3 as6 Triage Assessment: 22:07 General: Appears uncomfortable, Behavior is calm, cooperative. Pain: Complains of pain as6 in left leg. Historical: - Allergies: 22:07 No Known Allergies; as6 - PMHx: 22:07 diabetes mellitus; Hypertensive disorder; Kidney stones; as6 - PSHx: 22:07 Lithotripsy; as6 - Immunization history:: Adult Immunizations up to date. - Infectious Disease History:: Denies. - Social history:: Smoking status: Patient denies any tobacco usage or history of. Screenin:55 [facility] ED Fall Risk Assessment (Adult) History of falling in the last 3 months, pc2 including since admission No falls in past 3 months (0 pts). Abuse screen: Denies threats or abuse. Denies injuries from another. Nutritional screening: No deficits noted. Tuberculosis screening: No symptoms or risk factors identified. Assessment: 22:45 General: Appears in no apparent distress. uncomfortable, well groomed, Behavior is pc2 calm, cooperative, appropriate for age. Pain: Complains of pain in left leg Pain currently is 9 out of 10 on a pain scale. Quality of pain is described as tender, Pain began 2-3 days ago. Aggravated by weight bearing, Current management is with Tylenol, Advil. Neuro: Level of Consciousness is awake, alert, Oriented to person, place, time, situation, Appropriate for age. Cardiovascular: Patient's skin is warm and dry. Respiratory: Airway is patent Respiratory effort is even, unlabored, Respiratory pattern is regular, symmetrical. GI: No signs and/or symptoms were reported involving the gastrointestinal system. : No signs and/or symptoms were reported regarding the genitourinary system. EENT: No signs and/or symptoms were reported regarding the EENT system. Derm: No signs and/or symptoms reported regarding the dermatologic system. Musculoskeletal: Circulation, motion, and sensation intact. Range of motion: intact in all extremities, Tenderness present in left leg Reports pain in left leg since fall at work on Sunday. 23:56 Reassessment: Patient and/or family updated on plan of care and expected duration. Pain pc2 level reassessed. Patient is alert, oriented x 3, equal unlabored respirations, skin warm/dry/pink. Patient states feeling better. Patient states symptoms have improved. Pain: Pain currently is 6 out of 10 on a pain scale. Respiratory: Airway is patent Respiratory effort is even, unlabored, Respiratory pattern is regular, symmetrical. Vital Signs: 22:05 Pulse 81; Resp 18; Temp 98; Pulse Ox 98% ; Weight 127.01 kg; Height 5 ft. 7 in. ; Pain as6 8/10; 22:07 BP 128 / 91; as6 23:17 BP 114 / 70; Pulse 72; Resp 18; Pulse Ox 96% on R/A; pc2 22:05 Body Mass Index 43.85 (127.01 kg, 170.18 cm) as6 22:05 Pain Scale: Adult as6 ED Course: 21:57 Patient arrived in ED. gm2 22:07 Triage completed. as6 22:07 Arm band placed on. as6 22:09 Angela Butler FNP-C [facility]. kb 22:09 Harris Zapien MD is Attending Physician. kb 22:50 Arleth bacon, RN is Primary Nurse. pc2 22:50 X-ray(s) taken. pc2 22:55 Femur Left XRAY In Process Unspecified. EDMS 22:55 Patient has correct armband on for positive identification. Bed in low position. Call pc2 light in reach. Side rails up X2. Adult w/ patient. Provided Education on: plan of care. 03/21 00:03 No provider procedures requiring assistance completed. pc2 00:04 Patient did not have IV access during this emergency room visit. pc2 Administered Medications: 03/20 23:00 Drug: Cyclobenzaprine PO 10 mg PO once Route: PO; pc2 23:00 Follow up: Response: No adverse reaction pc2 23:00 Drug: HYDROcodone-acetaminophen PO 5 mg-325 mg 1 tabs PO once Route: PO; pc2 23:00 Follow up: Response: No adverse reaction; Marked relief of symptoms; Pain is decreased; pc2 RASS: Alert and Calm (0) Medication: 22:55 VIS not applicable for this client. pc2 Outcome: 23:50 Discharge ordered by MD. guerrero 03/21 00:03 Discharged to home ambulatory, with family, pc2 Condition: stable Discharge instructions given to patient, Instructed on discharge instructions, follow up and referral plans. no drinking with medication, medication usage, Demonstrated understanding of instructions, follow-up care, medications, 00:05 Patient left the ED. pc2 Signatures: Dispatcher [employer] EDMS Angela Butler, NUTRITION PROGRAM INSTRUCTOR-C ENA-Scott Austin, SASHA RN as6 Deidra Patel gm2 Arleth bacon, RN RN pc2 Corrections: (The following items were deleted from the chart) 03/20 23:57 22:45 Pain: Complains of pain in left leg Pain currently is 7 out of 10 on a pain pc2 scale. Quality of pain is described as tender, Pain began 2-3 days ago. Aggravated by weight bearing, Current management is with Tylenol, Advil, pc2 23:57 22:45 Neuro: Level of Consciousness is awake, alert, Oriented to person, place, time, pc2 situation, Appropriate for age pc2
--- NOTE | 2024-03-20 23:51 | EDPHYS ---
Physician Documentation [facility] Name: Myke Oliv[facility] Age: 53 yrs Sex: Male : 1970 Arrival Date: 03/20/2024 Time: 21:55 Bed 15 Private MD: ED Physician Harris Zapien HPI: 03/20 23:55 This 53 yrs old Male presents to ER via Ambulatory with complaints of kb Numbness, Leg Pain. 23:56 Pt is a 53 year old male who presents for left low back pain that radiates down left kb leg with intermittent numbness and tingling since a fall on Sunday. States he was pushing something that was on a forklift and his left leg slid below it causing him to fall. Denies anything falling onto leg. Was seen by [facility] and had a CT scan done yesterday, but is still having pain and hasn't gotten results or any medication for pain management. . Historical: - Allergies: 22:07 No Known Allergies; as6 - PMHx: 22:07 diabetes mellitus; Hypertensive disorder; Kidney stones; as6 - PSHx: 22:07 Lithotripsy; as6 - Immunization history:: Adult Immunizations up to date. - Infectious Disease History:: Denies. - Social history:: Smoking status: Patient denies any tobacco usage or history of. ROS: 23:56 Constitutional: As per HPI kb Exam: 23:56 Constitutional: This is a well developed, well nourished patient who is awake, alert, kb and in no acute distress. Head/Face: Normocephalic, atraumatic. ENT: Moist Mucous membranes Cardiovascular: Regular rate Respiratory: Respirations even and unlabored. No increased work of breathing. Talking in full sentences Abdomen/GI: Soft, non-tender. No distention Skin: Warm, dry with normal turgor. Normal color. Neuro: Awake and alert, GCS 15, oriented to person, place, time, and situation. Moves all extremities. Normal gait. 23:56 Back: pain, that is mild, of the left low back, 23:56 Musculoskeletal/extremity: Extremities: grossly normal except: noted in the left leg: pain, ROM: intact in all extremities, Circulation is intact in all extremities. Sensation intact. Vital Signs: 22:05 Pulse 81; Resp 18; Temp 98; Pulse Ox 98% ; Weight 127.01 kg; Height 5 ft. 7 in. ; Pain as6 8/10; 22:07 BP 128 / 91; as6 23:17 BP 114 / 70; Pulse 72; Resp 18; Pulse Ox 96% on R/A; pc2 22:05 Body Mass Index 43.85 (127.01 kg, 170.18 cm) as6 22:05 Pain Scale: Adult as6 MDM: 22:09 Patient medically screened. kb 23:58 Differential diagnosis: closed fracture, contusion, strain, sciatica. Data reviewed: kb vital signs, nurses notes. Test considered but Not performed: CT: ct considered but pt has no vertebral tenderness. External Records Reviewed: Outpatient radiology: CT lumbar spine, pelvis and left hip reviewed. Degenerative changes only. Counseling: I had a detailed discussion with the patient and/or guardian regarding the historical points, exam findings, and any diagnostic results supporting the discharge/admit diagnosis, radiology results, the need for outpatient follow up, a family practitioner, to return to the emergency department if symptoms worsen or persist or if there are any questions or concerns that arise at home. 03/20 22:32 Order name: Femur Left XRAY kb Administered Medications: 23:00 Drug: Cyclobenzaprine PO 10 mg PO once Route: PO; pc2 23:00 Follow up: Response: No adverse reaction pc2 23:00 Drug: HYDROcodone-acetaminophen PO 5 mg-325 mg 1 tabs PO once Route: PO; pc2 23:00 Follow up: Response: No adverse reaction; Marked relief of symptoms; Pain is decreased; pc2 RASS: Alert and Calm (0) Disposition: 03/21 04:11 Co-signature as Attending Physician, Harris Zapien MD I agree with the assessment sp4 and plan of care. I reviewed the patient's care provided by the Advanced Practice Provider and agree with the diagnosis and treatment plan. Disposition Summary: 03/20/24 23:50 Discharge Ordered Notes: Location: Home kb Condition: Stable kb Diagnosis - Sciatica, left side kb - Pain in left leg kb Followup: kb - With: Emergency Department - When: As needed - Reason: Worsening of condition Followup: kb - With: Private Physician - When: 2 - 3 days - Reason: Recheck today's complaints, Continuance of care, Re-evaluation by your physician Discharge Instructions: - Discharge Summary Sheet kb - Musculoskeletal Pain kb - Sciatica, [id number] kb Forms: - Medication Reconciliation Form kb - Antibiotic Education kb - Prescription Opioid Use kb - Patient Portal Instructions kb - Leadership Thank You Letter kb Prescriptions: - Prednisone 20 mg Oral Tablet - take 1 tablet ORAL route once daily for 5 days; 5 tablet; Refills: 0, Product kb Selection Permitted - Cyclobenzaprine 10 mg Oral tablet - take 1 tablet ORAL route every 8 hours As needed; 21 tablet; Refills: 0, kb Product Selection Permitted Signatures: Dispatcher [employer] EDMS Angela Butler, ICT HELP DESK OFFICER-C Scott Rojas, RN RN as6 Harris Zapien MD MD sp4 Arleth bacon, RN RN pc2 Corrections: (The following items were deleted from the chart) 03/20 22:54 22:33 Pelvis+[id number].[email or web address] ordered. EDMO EDMS
[2024-03-21 00:40] VITALS: BP 114/70; TEMP 98; O2SAT 96
--- NOTE | 2024-03-21 14:52 | RAD REPORT ---
EXAM DESCRIPTION: RAD - Femur Left - 03/20/2024 10:53 pm CLINICAL HISTORY: PAIN COMPARISON: None. FINDINGS: 2 views of the left femur. No acute fracture or dislocation. Normal osseous zinc miner blasting alization. No knee joint effusion. No radiopaque foreign body. IMPRESSION: No acute fracture or dislocation. Electronically signed by: Shon Ulrich DO 03/20/2024 11:27 PM CDT RP [id number] Due to temporary technical issues with the PACS/Fluency reporting system, reports are being signed by the in house radiologists without review as a courtesy to insure prompt reporting. The interpreting radiologist is fully responsible for the content of the report.
== END 2024-03-21 00:05 | disposition home or self-care (01) ==
LOC: ER 21:55
DX: M54.32 Sciatica, left side (principal)
CPT/HCPCS: 99283